=== PATIENT | female | born 1940 | race Caucasian/White ===

== ENCOUNTER → 2024-09-25 | Outpatient (CLI) | payer MEDICARE, BC, SELFPAY ==
[2024-09-25 14:56] LABS: B-Type Natriuretic Peptide 103 pg/mL (0-100)
== END | disposition home or self-care (01) ==
PROVIDERS: PCP Family Medicine; Referring Provider Physician Assistant; Visit Provider Physician Assistant
DX: I50.20 Unspecified systolic (congestive) heart failure (principal)
CPT/HCPCS: 36415; 83880

== ENCOUNTER 2024-09-27 05:32 | Inpatient (IN) | payer MEDICARE, BC, SELFPAY ==
[2024-09-27] VITALS (13 sets, daily range): BP systolic 119–151; BP diastolic 66–93; PULSE 72–111; RESP 17–32; TEMP 36.1–37.2; O2SAT 89–99; BMI 21.4
--- NOTE | 2024-09-27 05:40 | EKG_ITS ---
[facility] Test Date: 2024-09-27 Pat Name: EPI GARCIA Department: Room: - Gender: Female Director Of Annual Giving: : 1940 Requested By: ED Temporary Provider Order Number: [id number] Reading MD: ED Temporary Provider Measurements Intervals Placida Rate: 98 P: MO: QRS: 54 QRSD: 81 T: 89 QT: 336 QTc: 429 Interpretive Statements ATRIAL FIBRILLATION WITH ABERRANT CONDUCTION OR VENTRICULAR PREMATURE COMPLEXES MODERATE ST DEPRESSION [0.05+ mV ST DEPRESSION] No previous ECG available for comparison /store/S0/[id number].pdf
--- NOTE | 2024-09-27 05:45 | XR_ITS ---
Examination: AP chest single view Technique one AP portable upright chest single view Exam date and time: September 27, 2024 at 0623 hrs. Comparison September 24, 2024 1321 hrs. Indications: Shortness of breath this week Findings: Significant left lung atelectasis with shift of the mediastinum trachea and heart to the left Prominent osteopenia Heart does not appear enlarged Impression: Significant left lung atelectasis, consider bronchoscopy follow-up to exclude mucus plugging left mainstem bronchus
[2024-09-27 06:06] LABS: Basophils % (Auto) 0 % (0-2.5); Eosinophils # (Auto) 0.1 Thou/mm3 (0.0-0.5); Eosinophils % (Auto) 1 % (0-10); Immature Granulocytes % (Auto) 1 % (0-0); Immature Granulocytes Auto 0.16 Thou/mm3 (0.00-0.00); Lymphocytes # (Auto) 1.5 Thou/mm3 (1.0-4.8); Lymphocytes % (Auto) 13 % (10-50); Mean Corpuscular HGB Conc 34.9 g/dl (31.0-37.0); Mean Corpuscular Hemoglobin 31.2 pg (25.0-35.0); Mean Corpuscular Volume 89 fL (80-100); Monocytes # (Auto) 1.2 Thou/mm3 (0.0-0.8); Monocytes % (Auto) 11 % (0-12); Neutrophils # (Auto) 8.2 Thou/mm3 (1.8-7.7); Neutrophils % (Auto) 74 % (37-80); Nucleated Red Blood Cell % 0 /100 WBC (0); Platelet Count 307 Thou/mm3 (140-440); RDW Standard Deviation 43.2 fL (36.4-46.3); Red Blood Count 4.81 Miln/mm3 (4.00-5.20); White Blood Count 11.2 Thou/mm3 (3.6-11.0)
--- NOTE | 2024-09-27 06:23 | PD.EDSOB ---
ED SOB =RME/HPI General Chief Complaint: Shortness of Breath/Dyspnea Stated Complaint: SOB Time Seen by Provider: 09/27/24 06:00 Arrival date/time: 09/27/24 05:32 Related Data Home Medications ?Medication ?Instructions ?Recorded ?Confirmed losartan 50 mg tablet 50 mg PO QDAY 02/01/19 09/14/23 methenamine hippurate 1 gram tablet 1 g PO BID 02/01/19 09/14/23 montelukast 10 mg tablet 10 mg PO QDAY 04/03/19 09/14/23 theophylline 300 mg 300 mg PO DAILY 04/03/19 09/14/23 tablet,extended release,12 hr famotidine 20 mg tablet 20 mg PO QDAY 11/12/22 09/14/23 loperamide 2 mg capsule 2 mg PO PRN PRN Diarrhea 11/12/22 09/14/23 mirabegron 50 mg tablet,extended 50 mg PO QDAY 11/12/22 09/14/23 release 24 hr (Myrbetriq) simvastatin 40 mg tablet 40 mg PO QDAY 11/12/22 09/14/23 budesonide 1 mg/2 mL suspension 1 mg inhalation QDAY 09/14/23 09/14/23 for nebulization ipratropium 20 mcg-albuterol 100 2 puff inhalation QID PRN wheezing 09/14/23 09/14/23 mcg/actuation mist for inhalation (Combivent Respimat) metoclopramide HCl 5 mg tablet 5 mg PO BID 09/14/23 09/14/23 mirabegron 50 mg tablet,extended 50 mg PO QDAY 09/14/23 09/14/23 release 24 hr (Myrbetriq) Allergies Allergy/AdvReac Type Severity Reaction Status Date / Time Penicillins Allergy Severe SWELLING, Verified 09/14/23 09:30 RASH Sulfa (Sulfonamide Allergy Intermediate RASH, Verified 09/14/23 09:30 Antibiotics) ITCHING Course Orders Category Date Time Status CT Screening NOW Care 09/27/24 06:39 Active EKG (ED ONLY) *Do not use* NOW Care 09/27/24 05:[address] chest abdomen pelvis w Stat Exams 09/27/24 06:39 Taken EKG (ED Only) Stat Exams 09/27/24 05:40 Draft XR chest 1V portable Stat Exams 09/27/24 05:45 Completed B-Type Natriuretic Peptide Stat Lab 09/27/24 06:00 Completed Blood Culture (Lab) Stat Lab 09/27/24 07:40 Received CBC Stat Lab 09/27/24 06:00 Completed Comprehensive Metabolic Panel Stat Lab 09/27/24 06:00 Completed Lactate (Lactic Acid) Stat Lab 09/27/24 07:45 Completed Lipase Stat Lab 09/27/24 06:00 Completed Troponin I Stat Lab 09/27/24 06:00 Completed Urinalysis Stat Lab 09/27/24 06:39 Ordered Venous Blood Gas Stat Lab 09/27/24 07:45 Completed Vital Signs Vital signs: Vital Signs Temperature 98.5 F 09/27/24 05:40 Pulse Rate 98 09/27/24 05:40 Respiratory Rate 32 H 09/27/24 05:40 Blood Pressure 150/69 H 09/27/24 05:40 Pulse Oximetry (%) 89 L 09/27/24 05:40 Oxygen Delivery Method Room Air 09/27/24 05:40 Discharge Plan Prescriptions/Referrals Prescriptions/Med Rec: No Action losartan 50 mg Tablet 50 mg PO QDAY methenamine hippurate 1 gram Tablet 1 g PO BID theophylline 300 mg Tablet Extended Release 12 Hr 300 mg PO DAILY montelukast 10 mg Tablet 10 mg PO QDAY metoclopramide HCl 5 mg tablet 5 mg PO BID budesonide 1 mg/2 mL Suspension For Nebulization 1 mg INHALATION QDAY Myrbetriq 50 mg tablet extended release 24 hr 50 mg PO QDAY Combivent Respimat 20-100 mcg/actuation mist 2 puff INHALATION QID PRN (Reason: wheezing) loperamide 2 mg Capsule 2 mg PO PRN PRN (Reason: Diarrhea) Rx Instructions: administer after each loose stool until symptoms controlled; do not exceed 8 mg per 24 hrs simvastatin 40 mg tablet 40 mg PO QDAY famotidine 20 mg Tablet 20 mg PO QDAY Myrbetriq 50 mg tablet extended release 24 hr 50 mg PO QDAY Referrals: Jacqueline Moyer MD [Primary Care Provider] - In 1 week Patient/Caregiver Discharge Instructions Print Language: Finnish
--- NOTE | 2024-09-27 06:23 | PD.EDSOB ---
ED SOB =RME/HPI General Chief Complaint: Shortness of Breath/Dyspnea Stated Complaint: SOB Time Seen by Provider: 09/27/24 06:00 Arrival date/time: 09/27/24 05:32 RME / HPI RME / HPI Narrative: Patient 84-year-old who has a history of COPD asthma has been having shortness of breath getting worse over the past 9 days where they contacted their primary care doctor had a run of some steroids Z-Tom over the past 4 days and was slightly getting better than getting worse and today she is even worse and she came in by. The daughter gives a very detailed history talking about her O2 sats coming up and down into the 90s to the 80s but this morning and it was down into the 70s.. She also had a diaphragmatic hernia that was surgically repaired 3 months ago. And she has done relatively well since that time. They noticed some increased cough during the 3-month but over the last 9 days things got worse. There is been no fever there has been no sputum production. They have been using nebulizers at home without any significant relief. Related Data Home Medications ?Medication ?Instructions ?Recorded ?Confirmed losartan 50 mg tablet 50 mg PO QDAY 02/01/19 09/14/23 methenamine hippurate 1 gram tablet 1 g PO BID 02/01/19 09/14/23 montelukast 10 mg tablet 10 mg PO QDAY 04/03/19 09/14/23 theophylline 300 mg 300 mg PO DAILY 04/03/19 09/14/23 tablet,extended release,12 hr famotidine 20 mg tablet 20 mg PO QDAY 11/12/22 09/14/23 loperamide 2 mg capsule 2 mg PO PRN PRN Diarrhea 11/12/22 09/14/23 mirabegron 50 mg tablet,extended 50 mg PO QDAY 11/12/22 09/14/23 release 24 hr (Myrbetriq) simvastatin 40 mg tablet 40 mg PO QDAY 11/12/22 09/14/23 budesonide 1 mg/2 mL suspension 1 mg inhalation QDAY 09/14/23 09/14/23 for nebulization ipratropium 20 mcg-albuterol 100 2 puff inhalation QID PRN wheezing 09/14/23 09/14/23 mcg/actuation mist for inhalation (Combivent Respimat) metoclopramide HCl 5 mg tablet 5 mg PO BID 09/14/23 09/14/23 mirabegron 50 mg tablet,extended 50 mg PO QDAY 09/14/23 09/14/23 release 24 hr (Myrbetriq) Allergies Allergy/AdvReac Type Severity Reaction Status Date / Time Penicillins Allergy Severe SWELLING, Verified 09/14/23 09:30 RASH Sulfa (Sulfonamide Allergy Intermediate RASH, Verified 09/14/23 09:30 Antibiotics) ITCHING Review of Systems Review of Systems Narrative Review of Systems: Constitutional: DENIES; Fevers Eyes: DENIES; Loss of vision Head/Ear/Nose: DENIES; Loss of hearing Throat: DENIES; Dysphagia Cardiovascular: DENIES; Chest pain, dyspnea or syncope Respiratory: SEE HPI +cough, +shortness of breath Gastrointestinal: DENIES; Rectal bleeding or melena. Genitourinary: DENIES; Dysuria (painful or difficult urination) Musculoskeletal: DENIES; Arthralgia (pain in a joint),; Skin: DENIES; Rash Neurological: DENIES; Loss of function or movement Psychiatric: DENIES; recent major life stressor, emotional problem, illicit drug use or abuse Endocrinology: DENIES; Weight change Hematologic/Lymphatic: DENIES; Abnormal bruising Allergic/Immunologic: DENIES; Urticaria (hives) Past Medical History Past Medical History CARDIAC: Positive Hypercholesterolemia and Hypertension RESPIRATORY: Positive Chronic Obstructive Pulmonary Disease (COPD), Asthma, Bronchitis and Pneumonia GASTROINTESTINAL: Positive Gastrointestinal Disorders, Colitis, Irritable Bowel, Hiatal Hernia and Gastroesophageal Reflux Disease GENITOURINARY: Positive Genitourinary Disorders (bladder prolapsed with bladder lift) REPRODUCTIVE: Positive Previous Pregnancies MUSCULOSKELETAL: Positive Musculoskeletal Disorders, Arthritis, Rheumatoid Arthritis, Osteoporosis and Carpal Tunnel Syndrome (bilaterally) ENT: Positive Cataracts OTHER HISTORY: Positive Hospitalization, Shingles, Falls, Chicken Pox and Mumps Family History FAMILY HISTORY: Positive Family Respiratory Disorders, Family Cardiac Disorders, Family Cancer and Family Surgery Surgical History SURGICAL: Positive Hysterectomy; Negative Cardiac Surgery Social History SMOKING STATUS: Never smoker SECOND HAND EXPOSURE: Yes SUBSTANCE USE: does not use ED Exam Narrative Physical exam: Physical Exam: General: The vital signs were reviewed. Patient O2 sat is 9394% on facemask the patient is non-toxic, in no apparent distress and appears healthy with a patent airway, no respiratory distress and has no apparent circulatory problems. Head & Scalp: Normocephalic, atraumatic. Face: Appears normal and is without lesions, deformity. Ears: Left external pinna appears normal. Right external pinna appears normal. Eyes: The sclera is anicteric. No obvious photophobia. The Left and Right Orbit/Lid/Conjunctiva appears normal without swelling, discoloration or injection. Nose: The nose is without deformity, discharge or tenderness; Throat: Appears normal. The mucous membranes are pink and moist without exudates, redness or mass seen. The tongue appears normal. Neck: The neck is supple and no apparent mass or adenopathy. Chest: The left posterior chest has decreased breath sounds and is quite muffled. Right chest you can hear breath sounds. Anteriorly breath sounds are clearly diminished in the lower side of the left thorax. There is no wheezes rhonchi or rales heard. Patient has no pain with respirations. She is a little kyphotic. Cardiovascular: Regular rate and rhythm; No murmurs, rubs, or gallops; Gastrointestinal: The abdomen appears normal. No obvious hernias or mass. The abdomen is soft and benign, non-distended, with no pain, no guarding and no rebound tenderness. Bowel sounds are present and normal sounding. No CVA tenderness. Genitourinary: Back/Spine: Nontender on Paller caution normal inspection Extremities/Musculoskeletal/lymphatic: The bilateral upper and lower extremities are warm. There is no evidence of arterial insufficiency. There is no evidence of venous insufficiency/edema. The patient spontaneously moves bilateral upper and lower extremities with no pain and no limitation of movement. There is no apparent, injury or trauma. Skin: The skin is warm, dry and intact. No rashes. No petechia. No purpura. No abnormal bruising. The color is appropriate with no cyanosis. Mental status/Psychiatric: Mental status is appropriate for age. The patient has no apparent delusions, visual hallucinations, no apparent audible hallucinations. The patient has no apparent suicidal thoughts/ideation and no apparent homicidal thoughts/ideation. Neurological: The patient is awake, alert, interactive, cordial, cooperative and is oriented to name and situation. The patient follows commands and answers historical question with no impairment. There is no visual disturbance apparent. The pupils are equal and reactive bilaterally with normal eye movements and no diplopia The bilateral upper and lower extremities have normal strength, normal range of motion and normal functioning. The gait, station and balance were not tested due to acuity. Course Quality Measures none Orders Category Date Time Status CT Screening NOW Care 09/27/24 06:39 Active EKG (ED ONLY) *Do not use* NOW Care 09/27/24 05:[address] chest abdomen pelvis w Stat Exams 09/27/24 06:39 Completed EKG (ED Only) Stat Exams 09/27/24 05:40 Draft XR chest 1V portable Stat Exams 09/27/24 05:45 Completed B-Type Natriuretic Peptide Stat Lab 09/27/24 06:00 Completed Blood Culture (Lab) Stat Lab 09/27/24 07:40 Received CBC Stat Lab 09/27/24 06:00 Completed Comprehensive Metabolic Panel Stat Lab 09/27/24 06:00 Completed Lactate (Lactic Acid) Stat Lab 09/27/24 07:45 Completed Lipase Stat Lab 09/27/24 06:00 Completed Troponin I Stat Lab 09/27/24 06:00 Completed Urinalysis Stat Lab 09/27/24 06:39 Ordered Venous Blood Gas Stat Lab 09/27/24 07:45 Completed Vital Signs Vital signs: Vital Signs Temperature 98.5 F 09/27/24 05:40 Pulse Rate 98 09/27/24 05:40 Respiratory Rate 32 H 09/27/24 05:40 Blood Pressure 150/69 H 09/27/24 05:40 Pulse Oximetry (%) 89 L 09/27/24 05:40 Oxygen Delivery Method Room Air 09/27/24 05:40 Pulse ox is 89% on room air which is hypoxic. Shortness of Breath / Dyspnea MDM Narrative MDM Narrative:: Patient saw her primary care doctors nurse practitioner this past week and had a chest x-ray done as an outpatient which is in our system which reveals a large left pleural effusion which was not seen a year and a half ago on a chest x-ray at that time. Today's chest x-ray reveals the same left pleural effusion except is actually more extensive. The question is why did she have a new onset left pleural effusion. Is a postoperative issue or is or some other issue going on. Will get a CT of the chest abdomen pelvis to rule out neoplasm and then we will reevaluate her in talk about a thoracentesis and/or admission. Patient had a CT scan of the chest abdomen pelvis reveals a large pleural effusion with the lung partially collapsed but no masses seen. There is a benign lesion in the pancreas per verbal communication with Dr. Medrano the radiologist. The diaphragm appears to be intact with no diaphragmatic hernia seen at this time. Chest x-ray read by myself reveals large left pleural effusion feeling up two thirds of the left thorax. Right lung field appears perfectly clear CMP reveals a sodium 140 potassium 3.6 chloride 104 CO2 25.8 anion gap is 10 BUN 17 creatinine 1.0. Glucose 134 AST ALT are normal lactic acid 1.5. Troponin was negative BNP was 53. The cause of this patient's left pleural effusion is unclear. I called her doctors at [facility] spoke with the resident Dr. Crocker and spoke with the PA on Maria Guadalupe's phone number is [phone] and both them said the surgery that was done in December would not cause a diffusion at this time or to be extremely rare. They recommended proceeding with just the usual workup for a new onset pleural effusion. I then contacted the hospitalist and spoke with the resident and they will admit the patient to work of her pleural effusion. This information was communicated the patient and the daughter who is present in the room. CT chest abdomen pelvis IMPRESSION: Bilateral thyroid nodules Significant left lung atelectasis with poor aeration of the left bronchial airway beyond the left mainstem bronchus, consider bronchoscopy follow-up to exclude mucous plugs in the left bronchial airway Moderate left pleural fluid 14 mm hypodense mass body the pancreas, recommend MRI abdomen pancreas follow-up pre and postcontrast Nonspecific ileus versus enteritis pattern Colonic diverticulosis, no diverticulitis Patient data External records reviewed:: [facility] previous records Clinical information provided by:: patient and family (Daughter- adds to history ) Social determinants that could affect healthcare access:: none Patient has the following chronic illnesses:: COPD asthma How is presenting disease/condition affected by chronic disease/condition?: exacerbated by Evaluation data The following diagnostics were reviewed and interpreted by me:: lab results, radiology exam(s) and EKG tracing(s) (Atrial fibrillation, rate 98, no STEMI) Lab and/or radiology exams considered but not ordered:: None Interpretation Summary: Ordering Physician: Samantha Millan MD Date of Service: 09/27/24 Procedure(s): XR chest 1V portable Accession Number(s): [id number] cc: Maik Spence MD; Samantha Millan MD~ Examination: AP chest single view Technique one AP portable upright chest single view Exam date and time: September 27, 2024 at 0623 hrs. Comparison September 24, 2024 1321 hrs. Indications: Shortness of breath this week Findings: Significant left lung atelectasis with shift of the mediastinum trachea and heart to the left Prominent osteopenia Heart does not appear enlarged Impression: Significant left lung atelectasis, consider bronchoscopy follow-up to exclude mucus plugging left mainstem bronchus Dictated By: Maik Spence MD Signed By: <Electronically signed by Maik Spence MD in OV> 09/27/24 0744 Ordering Physician: João Kidd MD Date of Service: 09/27/24 Procedure(s): CT chest abdomen pelvis w Accession Number(s): [id number] cc: João Kidd MD; Maik Spence MD; Jacqueline Moyer MD~ Examination: CT chest with intravenous contrast CT abdomen with intravenous contrast CT pelvis with intravenous contrast 2-D coronal and sagittal reconstructions Time of exam: September 27, 2024 0719 hours Comparison September 15, 2023 INDICATIONS: Shortness breath chest pain beginning 4 days ago as well as abdominal pain CTDI: vol (mGy) : 6.52 DLP: (mGycm): 463 Technique: Multiple axial images of the chest, abdomen and pelvis with intravenous contrast, 3.0 mm slice thickness. Images obtained post intravenous injection Isovue 370 60 cc. 2-D sagittal and coronal reconstructions. Low dose protocols were performed. One or more of the following dose reduction techniques were used; automated exposure control, adjustment of the mA and/or KV according to patient size, use of iterative reconstruction technique. Findings: Bilateral thyroid nodules, the largest in the right lobe of the thyroid 14 mm No thoracic aortic aneurysm dilatation or dissection Main pulmonary artery segment 26 mm No pulmonary artery emboli Significant left lung atelectasis with very poor aeration of the left bronchial airway beyond the left mainstem bronchus, however no solid tumor noted in the left mediastinum or right mediastinum Moderate left pleural fluid The heart mediastinum trachea are shifted to the left Retrocardiac gastric hernia No focal liver or splenic lesion No gallstones 14 mm hypodense mass in the body the pancreas axial image 140 No adrenal mass No hydronephrosis Heavy abdominal aortic calcification no aneurysmal dilatation No pericecal inflammatory change Fluid distended small bowel loops with wall thickening, for instance axial image 205 although no obstruction Colonic diverticulosis prominent Sigmoid colon no diverticulitis Absent uterus No adnexal mass Urinary bladder intact Severe osteopenia IMPRESSION: Bilateral thyroid nodules Significant left lung atelectasis with poor aeration of the left bronchial airway beyond the left mainstem bronchus, consider bronchoscopy follow-up to exclude mucous plugs in the left bronchial airway Moderate left pleural fluid 14 mm hypodense mass body the pancreas, recommend MRI abdomen pancreas follow-up pre and postcontrast Nonspecific ileus versus enteritis pattern Colonic diverticulosis, no diverticulitis Dictated By: Maik Spence MD Signed By: <Electronically signed by Maik Spence MD in OV> 09/27/24 0940 Medications / Prescriptions Medications or Prescriptions considered but not ordered:: None Medication administrations:: Medication Administration History Acetaminophen (Acetaminophen 325 Mg Tablet) 650 mg PO Q6H PRN PRN Reason: Fever >100.4 Stop: 10/27/24 13:13 Acetaminophen (Acetaminophen 325 Mg Tablet) 650 mg PO Q6H PRN PRN Reason: PAIN SCALE 1-3 (mild Stop: 10/27/24 13:13 Hydrocodone Bitart/Acetaminophen (Hydrocodone/Apap 10/325 Tab) 1 tab PO Q4HR PRN PRN Reason: PAIN SCALE 7-10 (Severe Stop: 10/02/24 13:13 Acetylcysteine (Acetylcysteine Rt Linh 10% 4 Ml Nebu) 3 ml INH Q4HRRT KENNETH Stop: 10/27/24 18:59 Albuterol/Ipratropium (Albuterol/Ipratropium (Duoneb) Rt Linh 3 Ml Nebu) 3 ml INH Q4HRRT KENNETH Stop: 10/27/24 14:59 Last Admin: 09/27/24 15:34 Dose: 3 ml Documented By: LO Albuterol/Ipratropium (Albuterol/Ipratropium (Duoneb) Rt Linh 3 Ml Nebu) 3 ml INH Q6HRRT PRN PRN Reason: SHORTNESS OF BREATH Stop: 10/27/24 18:59 Atorvastatin Calcium (Atorvastatin Calcium 20 Mg Tablet) 40 mg PO HS [facility] Stop: 10/27/24 20:59 Levofloxacin/Dextrose (Levaquin Ivpb) 750 mg in 150 mls @ 100 mls/hr IV QDAY KENNETH; Protocol Stop: 10/05/24 08:59 Losartan Potassium (Losartan Potassium 25 Mg Tablet) 50 mg PO QDAY [facility] Stop: 10/27/24 16:29 Methylprednisolone Sodium Succinate (Methylprednisolone Sod Succ 40 Mg Vial) 40 mg IVP BID [facility] Stop: 10/04/24 20:59 Mineral Oil (Mineral Oil 30 Ml Udc) 30 ml HI QDAY PRN; Protocol PRN Reason: CONSTIPATION Stop: 10/27/24 13:13 Non-Formulary Medication (Mirabegron) 50 mg PO QDAY [facility] Stop: 10/28/24 08:59 Ondansetron HCl (Ondansetron Inj 2 Mg/Ml Inj 2 Ml) 4 mg IV Q6H PRN; Protocol PRN Reason: NAUSEA OR VOMITING Stop: 10/27/24 13:13 Oxycodone/Acetaminophen (Oxycodone/Apap 5/325 Tablet) 1 tab PO Q6H PRN PRN Reason: PAIN SCALE 4-6 (Moderate Stop: 10/02/24 13:13 Pantoprazole Sodium (Pantoprazole Inj 40 Mg Vial) 40 mg IVP QDAY [facility] Stop: 10/28/24 08:59 Sennosides (Senna Tablet) 1 tab PO QDAY PRN; Protocol PRN Reason: constipation Stop: 10/27/24 13:13 Discontinued Medications Levofloxacin/Dextrose (Levaquin Ivpb) 750 mg in 150 mls @ 100 mls/hr IV Q48H KENNETH; Protocol Stop: 10/04/24 13:29 Last Admin: 09/27/24 14:29 Dose: 100 mls/hr Documented By: TM Lidocaine HCl (Lidocaine Inj Pf 1% 30 Ml Vial) Confirm Administered Dose 30 ml .ROUTE .STK-MED ONE Stop: 09/27/24 14:34 Sodium Chloride (Sodium Chloride Rt 10% 15 Ml Nebu) 5 ml INH X1 ONE Stop: 09/27/24 13:15 See above Consultations Consultation(s) initiated? (list below): Yes Consultation #1 (Physician, Specialty, Details): I spoke with resident Dr. Dove working with Dr. Moctezuma. Discussed patients PMHx, HPI, ED course, exam findings, labs, and radiology results. Will come evaluate the patient in the ED. Time: 12:06 Diagnosis Shortness of Breath Differential Diagnosis: acute exacerbation of chronic obstructive airways disease, congestive heart failure, community acquired pneumonia and pulmonary embolism Most likely diagnosis given after review of the tests above:: Pleural effusion on left Acute dyspnea Hypoxemia COPD Admission Indicated Admission indicated?: indicated Admission Request Was there a request for admission?: Yes Admission Attestation Admission request attestation: Discussed case with [] from Hospitalist service regarding admission. Discussed patients ED course, exam findings, labs, and radiology results. The Hospitalist [agrees,declines] to accept the patient for admission. 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
[2024-09-27 06:28] LABS: Alanine Aminotransferase 22 U/L (10-49); Albumin, Serum 3.9 gm/dL (3.4-4.8); Albumin/Globulin Ratio 1.8 (1.2-2.2); Alkaline Phosphatase 63 U/L (46-116); Anion Gap 10 (7-16); Aspartate Amino Transferase 18 U/L (0-34); BUN/Creatinine Ratio 17 Ratio (12-20); Bilirubin,Total 0.9 mg/dL (0.3-1.2); Blood Urea Nitrogen 17 mg/dL (9-23); Calcium 9.3 mg/dL (8.3-10.6); Calcium (Corrected) 9.4 mg/dL (8.5-10.1); Carbon Dioxide 25.8 mMol/L (20.0-31.0); Chloride 104 mMol/L (98-107); Estimated Creatinine Clearance 32.5 mL/min (>60); Globulin 2.2 gm/dL (2.3-3.5); Glucose 134 mg/dL (74-106); Lipase 25 U/L (12-53); Osmolality,Calculated 282 (275-295); Potassium 3.6 mMol/L (3.4-5.1); Sodium 140 mMol/L (136-145); Total Protein 6.1 gm/dL (5.7-8.2); Troponin I < 0.020 ng/mL (0.0-0.045); eGFR 55 See Note
--- NOTE | 2024-09-27 06:39 | XR_ITS ---
Examination: CT chest with intravenous contrast CT abdomen with intravenous contrast CT pelvis with intravenous contrast 2-D coronal and sagittal reconstructions Time of exam: September 27, 2024 0719 hours Comparison September 15, 2023 INDICATIONS: Shortness breath chest pain beginning 4 days ago as well as abdominal pain CTDI: vol (mGy) : 6.52 DLP: (mGycm): 463 Technique: Multiple axial images of the chest, abdomen and pelvis with intravenous contrast, 3.0 mm slice thickness. Images obtained post intravenous injection Isovue 370 60 cc. 2-D sagittal and coronal reconstructions. Low dose protocols were performed. One or more of the following dose reduction techniques were used; automated exposure control, adjustment of the mA and/or KV according to patient size, use of iterative reconstruction technique. Findings: Bilateral thyroid nodules, the largest in the right lobe of the thyroid 14 mm No thoracic aortic aneurysm dilatation or dissection Main pulmonary artery segment 26 mm No pulmonary artery emboli Significant left lung atelectasis with very poor aeration of the left bronchial airway beyond the left mainstem bronchus, however no solid tumor noted in the left mediastinum or right mediastinum Moderate left pleural fluid The heart mediastinum trachea are shifted to the left Retrocardiac gastric hernia No focal liver or splenic lesion No gallstones 14 mm hypodense mass in the body the pancreas axial image 140 No adrenal mass No hydronephrosis Heavy abdominal aortic calcification no aneurysmal dilatation No pericecal inflammatory change Fluid distended small bowel loops with wall thickening, for instance axial image 205 although no obstruction Colonic diverticulosis prominent Sigmoid colon no diverticulitis Absent uterus No adnexal mass Urinary bladder intact Severe osteopenia IMPRESSION: Bilateral thyroid nodules Significant left lung atelectasis with poor aeration of the left bronchial airway beyond the left mainstem bronchus, consider bronchoscopy follow-up to exclude mucous plugs in the left bronchial airway Moderate left pleural fluid 14 mm hypodense mass body the pancreas, recommend MRI abdomen pancreas follow-up pre and postcontrast Nonspecific ileus versus enteritis pattern Colonic diverticulosis, no diverticulitis
--- NOTE | 2024-09-27 07:16 | PC.NURSE ---
PT TO CT UPON ASSUMPTION OF CARE.
[2024-09-27 07:21] LABS: B-Type Natriuretic Peptide 53 pg/mL (0-100)
[2024-09-27 08:02] LABS: Base Excess, Venous 6 (-3-3); Lactate (Lactic Acid) 1.5 mMol/L (0.4-2.0); O2 Saturation, Venous 40 % (96-97); PCO2, Venous 44 mmHg (36-56); PO2, Venous 23 mmHg (15-58); pH, Venous 7.45 (7.33-7.66)
--- NOTE | 2024-09-27 10:13 | PC.NURSE ---
connected pts g-tube to suction at doctors verbal request
--- NOTE | 2024-09-27 13:31 | PD.RESPRO ---
Documentation for date of: 09/27/24 Subjective Subjective Interval history: This is an 88-year-old female with PMHx of asthma, COPD with recurrent admission for exacerbation, HLD, HTN, presenting with worsening shortness of breath, found hypoxemic at home, desatting to 70. Recently, patient was seen by PCP who prescribed STEROIDS and Z-DARYN. Patient has completed her course of Z-DARYN and STEROID, however now having worsening symptoms. Patient was seen by PCP who recommended hospital admission. In the last 2 months, patient completed 2 rounds of STEROIDS and ANTIBIOTICS for similar symptoms. Of note, she also had recurrent admission for COPD or asthma exacerbation. Patient does not use home oxygen. However, recently given temporary oxygen supply which she has been using without relief of symptoms. Unable to walk more than 10 ft without shortness of breath. Patient also endorsing productive cough, yellow/[place] sputum. Denies headaches, fevers, chills, falls, chest pain, palpitations, racing sensation, abdominal pain, N/V/D/C, or urinary symptoms. ED COURSE: Afebrile, satting 89% on 6 L, RR 32, HR 98, BP 150/69 VBG pH 7.45, pCO2 44, pO2 23 WBC 11.2, otherwise CBC normal. CMP no significant abnormalities. Troponin negative, BNP 103 EKG atrial fibrillation with VPC CXR and CT pertinent for significant lung atelectasis, possible mucous plug, moderate left pleural effusion CT also showed left mediastinal shift, Retrocardiac gastric hernia, bilateral thyroid nodules (largest 14 mm in right lobe), 14 mm hypodense mass in body of pancrease, and colonic diverticulosis without diverticulitis. Hospitalist team was consulted for this patient. We will admit for acute hypoxemic respiratory failure likely 2/2 mucous plug 2/2 pneumonia versus asthma/COPD exacerbation. Finance Executive team was also consulted for this patient, to undergo bronchoscopy. Appreciate recommendations. PMHx: COPD, asthma, HLD, HTN PSHx: Hiatal hernia repair MEDS: MONTELUKAST, THEOPHYLLINE, COMBIVENT, BUDESONIDE, LOSARTAN, SIMVASTATIN, METHANAMINE-HIPPURE, MIRABEGRON, CYCLOBENZAPRINE, LOPERAMIDE, ALLERTEK. ALLERGIES: AMOXICILLIN (urticaria) and SULFA DRUGS (urticaria) SH: Never smoker, no alcohol or drug use Exam Vital Signs Temp Pulse Resp BP Pulse Ox O2 Del Method O2 Flow Rate 98.9 F 89 17 145/81 H 94 L Oxy Mask 7 09/27/24 12:39 09/27/24 12:39 09/27/24 12:39 09/27/24 12:39 09/27/24 12:39 09/27/24 12:39 09/27/24 12:39 Narrative Exam GENERAL: Ill-appearing elderly female, on 7 L cannula, tachypneic, but no apparent distress HEENT: NCAT.?MANDO. Oral mucosa is moist. Patent Nares NECK: Supple, nontender, no thyromegaly, no meningismus, no JVD, no step offs CHEST: Symmetrical, atraumatic, and with equal expansion, Nontender on palpation no deformity and no crepitus. CARDIOVASCULAR: RRR, no m/g/r LUNGS: Decreased breath sound bilaterally, worse on the left. No wheezing, rales or rhonchi appreciated on exam. Symmetrical chest rise. No intercostal subcostal retraction. ABDOMEN: Soft, flat, nontender. No guarding/rebound tenderness/masses. +BS EXTREMITIES: Nontender.? No edema/cyanosis.?Moves all 4 extremities well, with full ROM and good CSM. SKIN: Warm and dry, no jaundice/rashes. MSK: No lumbar or midline, no CVA, no paraspinal muscle spasm or tenderness. NEURO: MCLEAN x4, CN II-XII grossly intact.?No focal neurologic deficits. PSYCHIATRIC: Normal mood and affect, cooperative, no SI or HI or hallucinations. Objective Labs 09/27/24 06:00 09/27/24 06:00 Labs: Laboratory Results - last 24 hr 09/27/24 09/27/24 06:00 07:45 WBC 11.2 H RBC 4.81 Hgb 15.0 Hct 43.0 MCV 89 MCH 31.2 MCHC 34.9 RDW Std Deviation 43.2 Plt Count 307 Neut % (Auto) 74 Lymph % (Auto) 13 [place] % (Auto) 11 Eos % (Auto) 1 Baso % (Auto) 0 Neut # (Auto) 8.2 H Lymph # (Auto) 1.5 [place] # (Auto) 1.2 H Eos # (Auto) 0.1 Baso # (Auto) 0.0 Immature Gran # (Auto) 0.16 H Absolute Nucleated RBC 0.00 Immature Gran % 1 H Nucleated RBC % 0 VBG pH 7.45 VBG pCO2 44 VBG pO2 23 VBG O2 Sat (Giulia) 40 L VBG Base Excess 6 H Sodium 140 Potassium 3.6 Chloride 104 Carbon Dioxide 25.8 Anion Gap 10 BUN 17 Creatinine 1.0 Estim Creat Clear Calc 32.5 L eGFR 55 L BUN/Creatinine Ratio 17 Glucose 134 H Calculated Osmolality 282 Lactic Acid 1.5 Calcium 9.3 Corrected Calcium 9.4 Total Bilirubin 0.9 AST 18 ALT 22 Alkaline Phosphatase 63 Troponin I < 0.020 B-Natriuretic Peptide 53 Total Protein 6.1 Albumin 3.9 Globulin 2.2 L Albumin/Globulin Ratio 1.8 Lipase 25 ABG Interpretation ABG results: 09/27/24 07:45 VBG pH 7.45 VBG pCO2 44 VBG pO2 23 VBG Base Excess 6 H Quality Measures Quality Measures none Assessment & Plan Assessment Current Active Medications: Generic Name Dose Route Start Last Admin Trade Name Freq PRN Reason Stop Dose Admin Acetaminophen 650 mg 09/27/24 13:14 Acetaminophen 325 Mg Tablet PO 10/27/24 13:13 Q6H PRN Fever >100.4 Acetaminophen 650 mg 09/27/24 13:14 Acetaminophen 325 Mg Tablet PO 10/27/24 13:13 Q6H PRN PAIN SCALE 1-3 (mild Hydrocodone Bitart/Acetaminophen 1 tab 09/27/24 13:14 Hydrocodone/Apap 10/325 Tab PO 10/02/24 13:13 Q4HR PRN PAIN SCALE 7-10 (Severe Albuterol/Ipratropium 3 ml 09/27/24 15:00 Albuterol/Ipratropium (Duoneb) Rt Linh 3 Ml Nebu INH 10/27/24 14:59 Q4HRRT KENNETH Albuterol/Ipratropium 3 ml 09/27/24 13:14 Albuterol/Ipratropium (Duoneb) Rt Linh 3 Ml Nebu INH 10/27/24 18:59 Q6HRRT PRN SHORTNESS OF BREATH Levofloxacin/Dextrose 750 mg in 150 mls @ 100 mls/hr 09/27/24 13:30 Levaquin Ivpb IV 10/04/24 13:29 QDAY KENNETH Methylprednisolone Sodium Succinate 40 mg 09/27/24 21:00 Methylprednisolone Sod Succ 40 Mg Vial IVP 10/04/24 20:59 BID KENNETH Mineral Oil 30 ml 09/27/24 13:14 Mineral Oil 30 Ml Udc ND 10/27/24 13:13 QDAY PRN CONSTIPATION Protocol Ondansetron HCl 4 mg 09/27/24 13:14 Ondansetron Inj 2 Mg/Ml Inj 2 Ml IV 10/27/24 13:13 Q6H PRN NAUSEA OR VOMITING Protocol Oxycodone/Acetaminophen 1 tab 09/27/24 13:14 Oxycodone/Apap 5/325 Tablet PO 10/02/24 13:13 Q6H PRN PAIN SCALE 4-6 (Moderate Pantoprazole Sodium 40 mg 09/28/24 09:00 Pantoprazole Inj 40 Mg Vial IVP 10/28/24 08:59 QDAY KENNETH Sennosides 1 tab 09/27/24 13:14 Senna Tablet PO 10/27/24 13:13 QDAY PRN constipation Protocol Plan This is an 84-year-old female admitted for acute hypoxemic respiratory failure 2/2 mucous plug 2/2 pneumonia, COPD with asthma exacerbation. Past medical history includes COPD, asthma, HLD, HTN. Recently failed ANTIBIOTICS and STEROIDS outpatient. Has been desatting in the 70s at home. Finance Executive team consulted for pending bronchoscopy. Acute hypoxemic respiratory failure 2/2 MRI abdomen, pancreatic mass TSH for thyroid nodule
--- NOTE | 2024-09-27 13:51 | XR_ITS ---
Examination: Ultrasound right hemithorax Ultrasound left hemithorax Exam date and time: September 27, 2024 1443 hours INDICATIONS: Difficulty breathing this week pleural fluid on CT chest study today Technique and findings: Grayscale sonographic images hemithoraces Small bilateral pleural effusions IMPRESSION: Small bilateral pleural effusions
[2024-09-27] MEDS: LEVOFLOXACIN/D5W 750MG IVPB 750 MG/150 ML BAG 100 MG IV (14:29)
--- NOTE | 2024-09-27 14:51 | PC.CC ---
Patient is an 84 year-old female who presents to the hospital for COPD Exacerbation. Lacy SOLER made [id number] contact with patient. ASW introduced self, role, and reason for visit. Patient appeared alert and oriented to self, location, and situation. At bedside was patient's daughter, Vanesa Coronel who patient provided consent to remaining in the room during assessment and answering some question. Patient was pleasant and engaged in initial assessment. Patient confirmed information on demographics and lives alone. Patient is able to ambulate independently and completes her own ADLs without any assistance. Patient has been using oxygen since presenting to the hospital; however, reports she does not use oxygen at home. Patient receives primary care with Dr. Moyer and uses [facility] for any prescription medications. Patient named both her daughter, Vanesa and her son, Mario Coronel as her Next of Kin. Upon discharge patient plans to return home. creative services specialist to follow-up with any discharge needs.
[2024-09-27 15:29] LABS: Thyroid Stimulating Hormone 2.34 uIU/mL (0.55-4.78)
[2024-09-27] MEDS: ALBUTEROL/IPRATROPIUM (Duoneb) RT SOL 3 ML NEBU INH ×3 (15:34→22:19)
--- NOTE | 2024-09-27 16:01 | ESHP_ITS ---
Documentation for date of: 09/27/24 [facility] History of Present Illness History of present illness: This is an 88-year-old female with PMHx of asthma, COPD with recurrent admission for exacerbation, HLD, HTN, presenting with worsening shortness of breath, found hypoxemic at home, desatting to 70. Recently, patient was seen by PCP who prescribed STEROIDS and Z-DARYN. Patient has completed her course of Z-DARYN and STEROID, however now having worsening symptoms. Patient was seen by PCP who recommended hospital admission. In the last 2 months, patient completed 2 rounds of STEROIDS and ANTIBIOTICS for similar symptoms. Of note, she also had recurrent admission for COPD or asthma exacerbation. Patient does not use home oxygen. However, recently given temporary oxygen supply which she has been using without relief of symptoms. Unable to walk more than 10 ft without shortness of breath. Patient also endorsing productive cough, yellow/[place] sputum. Denies headaches, fevers, chills, falls, chest pain, palpitations, racing sensation, abdominal pain, N/V/D/C, or urinary symptoms. ED COURSE: Afebrile, satting 89% on 6 L, RR 32, HR 98, BP 150/69 VBG pH 7.45, pCO2 44, pO2 23 WBC 11.2, otherwise CBC normal. CMP no significant abnormalities. Troponin negative, BNP 103 EKG atrial fibrillation with VPC CXR and CT pertinent for significant lung atelectasis, possible mucous plug, moderate left pleural effusion CT also showed left mediastinal shift, Retrocardiac gastric hernia, bilateral thyroid nodules (largest 14 mm in right lobe), 14 mm hypodense mass in body of pancrease, and colonic diverticulosis without diverticulitis. Hospitalist team was consulted for this patient. We will admit for acute hypoxemic respiratory failure likely 2/2 mucous plug 2/2 pneumonia versus asthma/COPD exacerbation. Cra team was also consulted for this patient, to undergo bronchoscopy. Appreciate recommendations. PMHx: COPD, asthma, HLD, HTN PSHx: Hiatal hernia repair MEDS: MONTELUKAST, THEOPHYLLINE, COMBIVENT, BUDESONIDE, LOSARTAN, SIMVASTATIN, METHANAMINE-HIPPURE, MIRABEGRON, CYCLOBENZAPRINE, LOPERAMIDE, ALLERTEK. ALLERGIES: AMOXICILLIN (urticaria) and SULFA DRUGS (urticaria) SH: Never smoker, no alcohol or drug use Exam Vital Signs Temp Pulse Resp BP Pulse Ox O2 Del Method O2 Flow Rate 98.9 F 84 18 145/81 H 99 Oxy Mask 4 09/27/24 12:39 09/27/24 15:38 09/27/24 15:38 09/27/24 12:39 09/27/24 15:38 09/27/24 12:39 09/27/24 15:38 Narrative Exam GENERAL: Ill-appearing elderly female, on 7 L cannula, tachypneic, but no apparent distress HEENT: NCAT.?MANDO. Oral mucosa is moist. Patent Nares NECK: Supple, nontender, no thyromegaly, no meningismus, no JVD, no step offs CHEST: Symmetrical, atraumatic, and with equal expansion, Nontender on palpation no deformity and no crepitus. CARDIOVASCULAR: RRR, no m/g/r LUNGS: Decreased breath sound bilaterally, worse on the left. No wheezing, rales or rhonchi appreciated on exam. Symmetrical chest rise. No intercostal subcostal retraction. ABDOMEN: Soft, flat, nontender. No guarding/rebound tenderness/masses. +BS EXTREMITIES: Nontender.? No edema/cyanosis.?Moves all 4 extremities well, with full ROM and good CSM. SKIN: Warm and dry, no jaundice/rashes. MSK: No lumbar or midline, no CVA, no paraspinal muscle spasm or tenderness. NEURO: MCLEAN x4, CN II-XII grossly intact.?No focal neurologic deficits. PSYCHIATRIC: Normal mood and affect, cooperative, no SI or HI or hallucinations. Results: Labs 09/28/24 04:54 09/28/24 04:54 Labs: Short CBC 09/27/24 Range/Units 06:00 WBC 11.2 H (3.6-11.0) Thou/mm3 Hgb 15.0 (12.0-16.0) g/dL Hct 43.0 (36.0-46.0) % Plt Count 307 (140-440) Thou/mm3 BMP 09/27/24 06:00 Sodium 140 Potassium 3.6 Chloride 104 Carbon Dioxide 25.8 BUN 17 Creatinine 1.0 Glucose 134 H Calcium 9.3 Cardiac Enzymes 09/27/24 Range/Units 06:00 Troponin I < 0.020 (0.0-0.045) ng/mL Liver Function 09/27/24 Range/Units 06:00 Total Bilirubin 0.9 (0.3-1.2) mg/dL AST 18 (0-34) U/L ALT 22 (10-49) U/L Alkaline Phosphatase 63 (46-116) U/L Albumin 3.9 (3.4-4.8) gm/dL ABG Interpretation ABG results: 09/27/24 07:45 VBG pH 7.45 VBG pCO2 44 VBG pO2 23 VBG Base Excess 6 H Quality Measures Quality Measures none Advance care planning discussed with:: patient Medications Home Medications and Allergies Home Medications ?Medication ?Instructions ?Recorded ?Confirmed ?Type losartan 50 mg tablet 50 mg PO QDAY 02/01/19 09/14/23 History methenamine hippurate 1 gram tablet 1 g PO BID 02/01/19 09/14/23 History montelukast 10 mg tablet 10 mg PO QDAY 04/03/19 09/14/23 History theophylline 300 mg 300 mg PO DAILY 04/03/19 09/14/23 History tablet,extended release,12 hr famotidine 20 mg tablet 20 mg PO QDAY 11/12/22 09/14/23 History loperamide 2 mg capsule 2 mg PO PRN PRN Diarrhea 11/12/22 09/14/23 History mirabegron 50 mg tablet,extended 50 mg PO QDAY 11/12/22 09/14/23 History release 24 hr (Myrbetriq) simvastatin 40 mg tablet 40 mg PO QDAY 11/12/22 09/14/23 History budesonide 1 mg/2 mL suspension 1 mg inhalation QDAY 09/14/23 09/14/23 History for nebulization ipratropium 20 mcg-albuterol 100 2 puff inhalation QID PRN wheezing 09/14/23 09/14/23 History mcg/actuation mist for inhalation (Combivent Respimat) metoclopramide HCl 5 mg tablet 5 mg PO BID 09/14/23 09/14/23 History mirabegron 50 mg tablet,extended 50 mg PO QDAY 09/14/23 09/14/23 History release 24 hr (Myrbetriq) Allergies Allergy/AdvReac Type Severity Reaction Status Date / Time Penicillins Allergy Severe SWELLING, Verified 09/14/23 09:30 RASH Sulfa (Sulfonamide Allergy Intermediate RASH, Verified 09/14/23 09:30 Antibiotics) ITCHING Visit Medications Acetaminophen (Acetaminophen 325 Mg Tablet) 650 mg PO Q6H PRN PRN Reason: Fever >100.4 Stop: 10/27/24 13:13 Acetaminophen (Acetaminophen 325 Mg Tablet) 650 mg PO Q6H PRN PRN Reason: PAIN SCALE 1-3 (mild Stop: 10/27/24 13:13 Hydrocodone Bitart/Acetaminophen (Hydrocodone/Apap 10/325 Tab) 1 tab PO Q4HR PRN PRN Reason: PAIN SCALE 7-10 (Severe Stop: 10/02/24 13:13 Albuterol/Ipratropium (Albuterol/Ipratropium (Duoneb) Rt Linh 3 Ml Nebu) 3 ml INH Q4HRRT KENNETH Stop: 10/27/24 14:59 Last Admin: 09/27/24 15:34 Dose: 3 ml Albuterol/Ipratropium (Albuterol/Ipratropium (Duoneb) Rt Linh 3 Ml Nebu) 3 ml INH Q6HRRT PRN PRN Reason: SHORTNESS OF BREATH Stop: 10/27/24 18:59 Levofloxacin/Dextrose (Levaquin Ivpb) 750 mg in 150 mls @ 100 mls/hr IV Q48H KENNETH; Protocol Stop: 10/04/24 13:29 Last Admin: 09/27/24 14:29 Dose: 100 mls/hr Methylprednisolone Sodium Succinate (Methylprednisolone Sod Succ 40 Mg Vial) 40 mg IVP BID [facility] Stop: 10/04/24 20:59 Mineral Oil (Mineral Oil 30 Ml Udc) 30 ml [place] QDAY PRN; Protocol PRN Reason: CONSTIPATION Stop: 10/27/24 13:13 Ondansetron HCl (Ondansetron Inj 2 Mg/Ml Inj 2 Ml) 4 mg IV Q6H PRN; Protocol PRN Reason: NAUSEA OR VOMITING Stop: 10/27/24 13:13 Oxycodone/Acetaminophen (Oxycodone/Apap 5/325 Tablet) 1 tab PO Q6H PRN PRN Reason: PAIN SCALE 4-6 (Moderate Stop: 10/02/24 13:13 Pantoprazole Sodium (Pantoprazole Inj 40 Mg Vial) 40 mg IVP QDAY [facility] Stop: 10/28/24 08:59 Sennosides (Senna Tablet) 1 tab PO QDAY PRN; Protocol PRN Reason: constipation Stop: 10/27/24 13:13 Discontinued Medications Sodium Chloride (Sodium Chloride Rt 10% 15 Ml Nebu) 5 ml INH X1 ONE Stop: 09/27/24 13:15 Assessment & Plan Plan In summary: This is an 84-year-old female admitted for acute hypoxemic respiratory failure 2/2 mucous plug 2/2 pneumonia, COPD with asthma exacerbation. Past medical history includes COPD, asthma, HLD, HTN. Recently failed ANTIBIOTICS and STEROIDS outpatient. Has been desatting in the 70s at home. Manager Services team consulted for possible bronchoscopy. Appreciate recommendation from pulmonology. Acute hypoxemic respiratory failure 2/2: Large, left-sided pleural effusion Left-sided atelectasis Pneumonia, community VS community-acquired COPD exacerbation VS asthma exacerbation Recently completed a course of STEROID and Z-DARYN for upper respiratory infection, presenting with worsening shortness of breath, desatting in 70s, not relieved by home oxygen which patient was prescribed temporarily. In ED, afebrile, WBC 11.2, found desatting and requiring 70 L of oxygen. CXR large left pleural effusion, significant left-sided atelectasis, mucous plug, which was also redemonstrated on CT in addition to left mediastinal STEROIDS. ? Telemetry, oxygen as needed ? Started LEVAQUIN 750 mg daily (09/27 to [present]) ? Started METHYLPREDNISOLONE 40 mg BID (09/27 to [present]) ? Started DuoNebs Q6H PRN and Q4H KENNETH ? Started MUCOMYST Q4H ? Completed pleural drainage for small bilateral pleural effusion ? Plan bronchoscopy with normal neurology ? Pending cultures: Urine and blood ? Pending cocci titer ? Pending pleural fluid cytology and culture HTN, HLD ? Resumed home LOSARTAN 50 mg daily ? Resumed home SIMVASTATIN 40 mg daily Hyperactive bladder ? Resumed home MIRABEGRON 50 mg daily Chronic shoulder and pain ? Pain control ? Holding home CYCLOBENZAPRINE 5 mg HS Thyroid nodules CT showed bilateral thyroid nodules, largest in right lobe 14 mm TSH 2.34 normal. No symptoms of thyroid abnormalities. ? No indication for intervention at this time. ? Follow-up outpatient with primary care provider Pancreatic mass CT showed 14 mm hypodense mass in the body the pancreas. No complaint of abdominal pain ? Pending MRI abdomen ? Pending CEA, CA 19-9, CA125 Health maintenance Diet: Regular diet GI prophylaxis: PROTONIX DVT prophylaxis: SCDs Antibiotics: LEVAQUIN CODE STATUS: Full code Disposition: Ending symptoms improving, pulmonology recommendations Patient case was discussed with attending, Pj Moctezuma MD and senior residents Dr. Greenwood and Dr. Dove. Shaista Gamino DO PGYI Attending Provider Attestation/Addendum I reviewed labs, imaging, EKG, home medications and prior available records. Face to face evaluation was performed by me. I have personally examined the patient and discussed assessment and plan with the IM team. I reviewed the resident note and agree with the plan with exceptions as below. Acute hypoxic respiratory failure Left sided pleural effusion Left lower lobe pneumonia Atelectasis of left lung Pancreatic mass Thyroid nodules Continue oxygen as needed IR guided pleurocentesis. Send fluid for culture and cytology Discussed with pooling operator: Will plan for bronchoscopy Ordered abdominal MRI to investigate the pancreatic mass. Send the tumor markers Order TSH Start IV antibiotics CT scan findings were discussed with the patient/family
[2024-09-27 16:48] LABS: Carcinoembryonic Antigen 2.8 ng/mL (0.0-5.0)
--- NOTE | 2024-09-27 18:09 | PC.NURSE ---
Pt transferred up stairs on tele by this RN, staff at bedside for transfer of care. No incident during transfer of care.
[2024-09-27] MEDS: ACETYLCYSTEINE RT SOL 10% 4 ML NEBU 3 ML INH ×2 (18:30→22:19)
[2024-09-27] MEDS: ATORVASTATIN CALCIUM 20 MG TABLET 40 MG PO (20:51)
--- NOTE | 2024-09-27 22:43 | PC.RT ---
Pt educated on Acapella PEP device, pt tolerated very well,left bedside with pt.
--- NOTE | 2024-09-27 22:44 | PC.RT ---
Sputum sample collected and sent to lab
[2024-09-28] VITALS (14 sets, daily range): BP systolic 110–154; BP diastolic 55–85; PULSE 77–108; RESP 20–27; TEMP 36.2–36.8; O2SAT 90–99; BMI 21.6
[2024-09-28] MEDS: ALBUTEROL/IPRATROPIUM (Duoneb) RT SOL 3 ML NEBU INH ×6 (02:43→22:59)
[2024-09-28] MEDS: ACETYLCYSTEINE RT SOL 10% 4 ML NEBU 3 ML INH ×4 (02:43→15:28)
[2024-09-28 05:48] LABS: Basophils % (Auto) 0 % (0-2.5); Eosinophils % (Auto) 0 % (0-10); Hematocrit 45.1 % (36.0-46.0); Hemoglobin 15.2 g/dL (12.0-16.0); Immature Granulocytes % (Auto) 1 % (0-0); Immature Granulocytes Auto 0.11 Thou/mm3 (0.00-0.00); Lymphocytes # (Auto) 0.2 Thou/mm3 (1.0-4.8); Lymphocytes % (Auto) 3 % (10-50); Mean Corpuscular HGB Conc 33.7 g/dl (31.0-37.0); Mean Corpuscular Hemoglobin 30.6 pg (25.0-35.0); Mean Corpuscular Volume 91 fL (80-100); Monocytes # (Auto) 0.1 Thou/mm3 (0.0-0.8); Monocytes % (Auto) 1 % (0-12); Neutrophils # (Auto) 8.6 Thou/mm3 (1.8-7.7); Neutrophils % (Auto) 95 % (37-80); Nucleated Red Blood Cell % 0 /100 WBC (0); Platelet Count 314 Thou/mm3 (140-440); RDW Standard Deviation 44.7 fL (36.4-46.3); Red Blood Count 4.96 Miln/mm3 (4.00-5.20)
[2024-09-28 06:03] LABS: Prothrombin Time 11.3 Seconds (9.0-12.2)
[2024-09-28 06:30] LABS: Alanine Aminotransferase 16 U/L (10-49); Albumin/Globulin Ratio 1.8 (1.2-2.2); Alkaline Phosphatase 66 U/L (46-116); Anion Gap 13 (7-16); Aspartate Amino Transferase 12 U/L (0-34); BUN/Creatinine Ratio 18 Ratio (12-20); Bilirubin,Total 0.9 mg/dL (0.3-1.2); Blood Urea Nitrogen 20 mg/dL (9-23); Calcium 8.7 mg/dL (8.3-10.6); Calcium (Corrected) 8.7 mg/dL (8.5-10.1); Carbon Dioxide 20.5 mMol/L (20.0-31.0); Chloride 104 mMol/L (98-107); Creatinine (Component) 1.1 mg/dL (0.6-1.3); Estimated Creatinine Clearance 29.6 mL/min (>60); Globulin 2.2 gm/dL (2.3-3.5); Glucose 170 mg/dL (74-106); LDH (Lactate Dehydrogenase) 213 U/L (120-246); Magnesium 2.4 mg/dL (1.6-2.6); Osmolality,Calculated 280 (275-295); Phosphorous 5.1 mg/dL (2.4-5.1); Potassium 4.4 mMol/L (3.4-5.1); Sodium 137 mMol/L (136-145); Total Protein 6.2 gm/dL (5.7-8.2); eGFR 49 See Note
--- NOTE | 2024-09-28 09:01 | XR_ITS ---
Examination: AP chest single view Technique one AP portable sitting chest single view Exam date and time: 04/28/2024 0924 hours Comparison September 27, 2024 FINDINGS: There remains prominent left lung atelectasis, shift of the trachea heart and mediastinum to the left Right lung clear Prominent osteopenia IMPRESSION: There remains significant left lung atelectasis
[2024-09-28] MEDS: LEVOFLOXACIN/D5W 750MG IVPB 750 MG/150 ML BAG 100 MG IV (09:27)
[2024-09-28] MEDS: PANTOPRAZOLE INJ 40 MG VIAL IVP (09:27)
[2024-09-28] MEDS: LOSARTAN POTASSIUM 25 MG TABLET 50 MG PO (09:27)
[2024-09-28 09:42] LABS: Glucose Estimated Average 131 mg/dL (80-131); Hemoglobin A1C 6.2 % Hgb (4.8-6.0)
[2024-09-28 11:04] LABS: Lactate (Lactic Acid) 1.9 mMol/L (0.4-2.0)
--- NOTE | 2024-09-28 11:17 | PD.RESPRO ---
Documentation for date of: 09/28/24 Subjective Subjective Interval history: Patient was seen and examined bedside. Denies any new complaints. Dr. Amador was consulted and patient was shifted to ICU for bronchoscopy and underwent successful removal of mucous plug and shifted back to the floors for further management. Dr. Eli was consulted further mass in the pancreas. Exam Vital Signs Temp Pulse Resp BP Pulse Ox O2 Del Method O2 Flow Rate 98.1 F 102 H 18 123/85 H 93 L Nasal Cannula 4 09/28/24 08:00 09/28/24 11:08 09/28/24 11:08 09/28/24 09:27 09/28/24 11:08 09/28/24 08:00 09/28/24 11:08 Narrative Exam General: Awake. Frail. On oxygen through nasal cannula. HEENT: Normocephalic, atraumatic, mucous membranes moist. Heart: Regular rate and rhythm, no murmurs. Lungs: Bilateral decreased breath sounds are noted. Abdomen: Soft, nondistended, nontender, positive bowel sounds. ?No guarding or rebound tenderness. Neurologic: Alert and oriented x3, no gross neurological deficit, and patient able to move all 4 extremities. Extremities: No edema. Skin: No rash or ecchymoses. Objective Labs 09/29/24 04:40 09/29/24 04:40 Labs: Laboratory Results - last 24 hr 09/27/24 09/27/24 09/28/24 06:00 14:28 04:54 WBC 9.0 RBC 4.96 Hgb 15.2 Hct 45.1 MCV 91 MCH 30.6 MCHC 33.7 RDW Std Deviation 44.7 Plt Count 314 Neut % (Auto) 95 H Lymph % (Auto) 3 L [place] % (Auto) 1 Eos % (Auto) 0 Baso % (Auto) 0 Neut # (Auto) 8.6 H Lymph # (Auto) 0.2 L [place] # (Auto) 0.1 Eos # (Auto) 0.0 Baso # (Auto) 0.0 Immature Gran # (Auto) 0.11 H Absolute Nucleated RBC 0.00 Immature Gran % 1 H Nucleated RBC % 0 PT 11.3 INR 1.0 Sodium 137 Potassium 4.4 D Chloride 104 Carbon Dioxide 20.5 Anion Gap 13 BUN 20 Creatinine 1.1 Estim Creat Clear Calc 29.6 L eGFR 49 L BUN/Creatinine Ratio [address] Glu mg/dL 131 Hemoglobin A1c 6.2 H Calculated Osmolality 280 Lactic Acid Calcium 8.7 Corrected Calcium 8.7 Phosphorus 5.1 Magnesium 2.4 Total Bilirubin 0.9 AST 12 ALT 16 Alkaline Phosphatase 66 Lactate Dehydrogenase 213 Total Protein 6.2 Albumin 4.0 Globulin 2.2 L Albumin/Globulin Ratio 1.8 Carcinoembryonic Ag 2.8 CA 125 Antigen 67.0 H TSH 2.34 09/28/24 10:55 WBC RBC Hgb Hct MCV MCH MCHC RDW Std Deviation Plt Count Neut % (Auto) Lymph % (Auto) [place] % (Auto) Eos % (Auto) Baso % (Auto) Neut # (Auto) Lymph # (Auto) [place] # (Auto) Eos # (Auto) Baso # (Auto) Immature Gran # (Auto) Absolute Nucleated RBC Immature Gran % Nucleated RBC % PT INR Sodium Potassium Chloride Carbon Dioxide Anion Gap BUN Creatinine Estim Creat Clear Calc eGFR BUN/Creatinine Ratio Glucose Estimated Ave Glu mg/dL Hemoglobin A1c Calculated Osmolality Lactic Acid 1.9 Calcium Corrected Calcium Phosphorus Magnesium Total Bilirubin AST ALT Alkaline Phosphatase Lactate Dehydrogenase Total Protein Albumin Globulin Albumin/Globulin Ratio Carcinoembryonic Ag CA 125 Antigen TSH ABG Interpretation ABG results: 09/27/24 07:45 VBG pH 7.45 VBG pCO2 44 VBG pO2 23 VBG Base Excess 6 H Quality Measures Quality Measures none Advance care planning discussed with:: patient Assessment & Plan Assessment Current Active Medications: Generic Name Dose Route Start Last Admin Trade Name Freq PRN Reason Stop Dose Admin Acetaminophen 650 mg 09/27/24 13:14 Acetaminophen 325 Mg Tablet PO 10/27/24 13:13 Q6H PRN Fever >100.4 Acetaminophen 650 mg 09/27/24 13:14 Acetaminophen 325 Mg Tablet PO 10/27/24 13:13 Q6H PRN PAIN SCALE 1-3 (mild Hydrocodone Bitart/Acetaminophen 1 tab 09/27/24 13:14 Hydrocodone/Apap 10/325 Tab PO 10/02/24 13:13 Q4HR PRN PAIN SCALE 7-10 (Severe Acetylcysteine 3 ml 09/27/24 19:00 09/28/24 11:08 Acetylcysteine Rt Linh 10% 4 Ml Nebu INH 10/27/24 18:59 3 ml Q4HRRT KENNETH Administration Albuterol/Ipratropium 3 ml 09/27/24 15:00 09/28/24 11:08 Albuterol/Ipratropium (Duoneb) Rt Linh 3 Ml Nebu INH 10/27/24 14:59 3 ml Q4HRRT KENNETH Administration Albuterol/Ipratropium 3 ml 09/27/24 13:14 Albuterol/Ipratropium (Duoneb) Rt Linh 3 Ml Nebu INH 10/27/24 18:59 Q6HRRT PRN SHORTNESS OF BREATH Atorvastatin Calcium 40 mg 09/27/24 21:00 09/27/24 20:51 Atorvastatin Calcium 20 Mg Tablet PO 10/27/24 20:59 40 mg HS KENNETH Administration Levofloxacin/Dextrose 750 mg in 150 mls @ 100 mls/hr 09/28/24 09:00 09/28/24 09:27 Levaquin Ivpb IV 10/05/24 08:59 100 mls/hr QDAY KENNETH Administration Protocol Losartan Potassium 50 mg 09/27/24 16:30 09/28/24 09:27 Losartan Potassium 25 Mg Tablet PO 10/27/24 16:29 50 mg QDAY KENNETH Administration Methylprednisolone Sodium Succinate 40 mg 09/27/24 21:00 09/28/24 09:28 Methylprednisolone Sod Succ 40 Mg Vial IVP 10/04/24 20:59 40 mg BID KENNETH Administration Mineral Oil 30 ml 09/27/24 13:14 Mineral Oil 30 Ml Udc AL 10/27/24 13:13 QDAY PRN CONSTIPATION Protocol Ondansetron HCl 4 mg 09/27/24 13:14 Ondansetron Inj 2 Mg/Ml Inj 2 Ml IV 10/27/24 13:13 Q6H PRN NAUSEA OR VOMITING Protocol Oxybutynin Chloride 5 mg 09/29/24 09:00 Oxybutynin Chlor 5 Mg Tablet PO 10/29/24 08:59 QDAY KENNETH Oxycodone/Acetaminophen 1 tab 09/27/24 13:14 Oxycodone/Apap 5/325 Tablet PO 10/02/24 13:13 Q6H PRN PAIN SCALE 4-6 (Moderate Pantoprazole Sodium 40 mg 09/28/24 09:00 09/28/24 09:27 Pantoprazole Inj 40 Mg Vial IVP 10/28/24 08:59 40 mg QDAY KENNETH Administration Sennosides 1 tab 09/27/24 13:14 Senna Tablet PO 10/27/24 13:13 QDAY PRN constipation Protocol Plan This is an 84-year-old female admitted for acute hypoxemic respiratory failure 2/2 mucous plug 2/2 pneumonia, COPD with asthma exacerbation. Past medical history includes COPD, asthma, HLD, HTN. Recently failed ANTIBIOTICS and STEROIDS outpatient. Has been desatting in the 70s at home. Document Management Consultant team consulted for possible bronchoscopy and patient underwent bronchoscopy with mucous plug extraction Acute hypoxemic respiratory failure 2/2: Large, left-sided pleural effusion Left-sided atelectasis Pneumonia, community VS community-acquired COPD exacerbation VS asthma exacerbation Recently completed a course of STEROID and Z-DARYN for upper respiratory infection, presenting with worsening shortness of breath, desatting in 70s, not relieved by home oxygen which patient was prescribed temporarily. In ED, afebrile, WBC 11.2, found desatting and requiring 70 L of oxygen. CXR large left pleural effusion, significant left-sided atelectasis, mucous plug, which was also redemonstrated on CT in addition to left mediastinal STEROIDS. ? Telemetry, oxygen as needed ? Started LEVAQUIN 750 mg daily (09/27 to [present]) ? Started METHYLPREDNISOLONE 40 mg BID (09/27 to [present]) ? Started DuoNebs Q6H PRN and Q4H KENNETH ? Started MUCOMYST Q4H ? Completed pleural drainage for small bilateral pleural effusion - Bronchoscopy was done and BAL is sent for Gram stain and cultures. ? Pending cultures: Urine and blood ? Tested negative for cocci IgM ? Pending pleural fluid cytology and culture HTN, HLD ? Resumed home LOSARTAN 50 mg daily ? Resumed home SIMVASTATIN 40 mg daily Hyperactive bladder ? Resumed home oxybutynin 5 Mg daily Chronic shoulder and pain ? Pain control ? Holding home CYCLOBENZAPRINE 5 mg HS Thyroid nodules CT showed bilateral thyroid nodules, largest in right lobe 14 mm TSH 2.34 normal. No symptoms of thyroid abnormalities. ? No indication for intervention at this time. ? Follow-up outpatient with primary care provider Pancreatic mass CT showed 14 mm hypodense mass in the body the pancreas. No complaint of abdominal pain ? Pending MRI abdomen ? Pending CA 19-9, CA125 is mildly elevated. Health maintenance Diet: Regular diet GI prophylaxis: PROTONIX DVT prophylaxis: SCDs Antibiotics: LEVAQUIN CODE STATUS: Full code Disposition: medtele Patient plan of care was discussed with the attending physician, Dr. Moctezuma and senior resident Dr. Timo Davila, PGY1 Attending Provider Attestation/Addendum I reviewed labs, imaging, EKG, home medications and prior available records. Face to face evaluation was performed by me. I have personally examined the patient and discussed assessment and plan with the IM team. I reviewed the resident note and agree with the plan with exceptions as below. Acute hypoxic respiratory failure Left sided pleural effusion Left lower lobe pneumonia Atelectasis of left lung Pancreatic mass Thyroid nodules Repeat chest x-ray showed worsening atelectasis: Discussed with ICU: Will move temporarily to the ICU for bronchoscopy. Bronchoscopy was done and mucous plugs were evacuated. No masses found. Repeat chest x-ray post bronchoscopy. Send BAL to analysis. Continue oxygen therapy IR guided pleurocentesis. Minimal fluids. Ordered abdominal MRI to investigate the pancreatic mass. Send the tumor markers. Showed mildly elevated CA125. Consulted oncology. Order TSH Start IV antibiotics CT scan findings were discussed with the patient/family
[2024-09-28 12:29] LABS: Cocci Serology, IgM Negative (Negative)
[2024-09-28] MEDS: MIDAZOLAM INJ 1 MG/ML VIAL 2 ML 3 MG IV (12:38)
[2024-09-28] MEDS: fentaNYL CIT INJ 50 mCg/ML AMP 2ML 100 MCG IV (12:38)
[2024-09-28] MEDS: LIDOCAINE HCL 1% 20 ML VIAL INFL ×2 (12:40→14:54)
--- NOTE | 2024-09-28 13:25 | PD.PUPROC ---
Procedures Procedure Date / Time 09/28/24 0922 Bronchoscopy Bronscopy indication(s): removal of secretions and diagnostic BAL Informed consent obtained from: patient Time out done and the following verified: correct patient, side and site, procedure and patient position Oxygen delivery: other (25 L/min flow Oxymizer) Vocal cords: symmetric equally mobile Trachea: proximal appears normal, mid appears normal and distal appears normal Evelia: sharp in angle RUL & subsegmental branches: mucosa appears normal RML & subsegmental branches: mucosa appears normal RLL & subsegmental branches: mucosa appears normal NICHOLAS & subsegmental branches: mucus plugging LLL & subsegmental branches: mucus plugging Bronchoalveolar lavage: 120 mL normal saline was used for the bronchial washings in the left upper and lower lobes in total. 40 mL of the above 120 mL was used specifically in the left lower lobe for bronchoalveolar lavage EBL: 1 Patient tolerated procedure: well Complications: No Procedure comment: The patient was sedated with 100 mcg fentanyl and 3 mg IV Versed in total. 20 mL 1% topical lidocaine used to achieve adequate cough suppression medications administered and O2 saturation and vital signs were monitored throughout the procedure and are recorded in the EMR nursing record. The bronchoscope was introduced via the right nares and navigated to the vocal cords. The left upper and lower lobe were visualized to have mucous plugging but more prominently in the left lower lobe. Extremely viscous, thick transparent/pale secretions were suctioned with the aid of repetitive normal saline flushes. I was able to successfully restore patency to the left lower lobe and the distal left lower lobe subsegments were visualized to be patent. Significant friability of the left lower lobe mucosa was identified. Significant mucosal edema and atelectasis was identified obscuring visualization to a certain degree. No obvious endobronchial lesions were seen. A BAL was submitted for Gram stain and culture
--- NOTE | 2024-09-28 13:30 | PD.PUHP ---
Documentation for date of: 09/28/24 [facility] Pulmonology History of Present Illness History of present illness: A pulmonary medicine consultation was requested for Mrs. Coronel who is an 84-year-old female admitted the hospital with acute hypoxic respiratory failure. CT imaging and chest x-ray identifies fluid-filled debris in the esophagus, a hiatal hernia, and left lower lobe collapse. Subsequent chest x-ray today identifies increasing left-sided collapse and ipsilateral retraction of the mediastinum. She has a history of a large hiatal hernia and she underwent reduction of the hernia and fundoplication at [facility] in December 2023. Since then her symptoms from her hiatal hernia have improved including an improvement in appetite and digestion. However a few weeks ago she developed an asthmatic exacerbation associated with increased mucus production as well as nausea and vomiting that she thought was caused by antibiotics. Denies any chest pain or recent bleeding history. Review of Systems Review of Systems Narrative Review of Systems: Constitutional: DENIES; Fevers Eyes: DENIES; Loss of vision Head/Ear/Nose: DENIES; Loss of hearing Throat: DENIES; Dysphagia Cardiovascular: DENIES; Chest pain, dyspnea or syncope Respiratory: SEE HPI +cough, +shortness of breath Gastrointestinal: DENIES; Rectal bleeding or melena. Genitourinary: DENIES; Dysuria (painful or difficult urination) Musculoskeletal: DENIES; Arthralgia (pain in a joint),; Skin: DENIES; Rash Neurological: DENIES; Loss of function or movement Psychiatric: DENIES; recent major life stressor, emotional problem, illicit drug use or abuse Endocrinology: DENIES; Weight change Hematologic/Lymphatic: DENIES; Abnormal bruising Allergic/Immunologic: DENIES; Urticaria (hives) Past Medical History Past Medical History CARDIAC: Positive Hypercholesterolemia and Hypertension RESPIRATORY: Positive Chronic Obstructive Pulmonary Disease (COPD), Asthma, Bronchitis and Pneumonia GASTROINTESTINAL: Positive Gastrointestinal Disorders, Colitis, Irritable Bowel, Hiatal Hernia and Gastroesophageal Reflux Disease GENITOURINARY: Positive Genitourinary Disorders (bladder prolapsed with bladder lift) REPRODUCTIVE: Positive Previous Pregnancies MUSCULOSKELETAL: Positive Musculoskeletal Disorders, Arthritis, Rheumatoid Arthritis, Osteoporosis and Carpal Tunnel Syndrome (bilaterally) ENT: Positive Cataracts OTHER HISTORY: Positive Hospitalization, Shingles, Falls, Chicken Pox and Mumps Family History FAMILY HISTORY: Positive Family Respiratory Disorders, Family Cardiac Disorders, Family Cancer and Family Surgery Surgical History SURGICAL: Positive Hysterectomy; Negative Cardiac Surgery Social History SMOKING STATUS: Never smoker SECOND HAND EXPOSURE: Yes SUBSTANCE USE: does not use Meds Home Medications and Allergies Home Medications ?Medication ?Instructions ?Recorded ?Confirmed ?Type losartan 50 mg tablet 50 mg PO QDAY 02/01/19 09/28/24 History methenamine hippurate 1 gram tablet 1 g PO BID 02/01/19 09/28/24 History montelukast 10 mg tablet 10 mg PO QDAY 04/03/19 09/28/24 History theophylline 300 mg 300 mg PO DAILY 04/03/19 09/28/24 History tablet,extended release,12 hr famotidine 20 mg tablet 20 mg PO QDAY 11/12/22 09/14/23 History loperamide 2 mg capsule 2 mg PO PRN PRN Diarrhea 11/12/22 09/28/24 History mirabegron 50 mg tablet,extended 50 mg PO QDAY 11/12/22 09/14/23 History release 24 hr (Myrbetriq) simvastatin 40 mg tablet 40 mg PO QDAY 11/12/22 09/28/24 History budesonide 1 mg/2 mL suspension 1 mg inhalation QDAY 09/14/23 09/14/23 History for nebulization ipratropium 20 mcg-albuterol 100 2 puff inhalation QID PRN wheezing 09/14/23 09/28/24 History mcg/actuation mist for inhalation (Combivent Respimat) metoclopramide HCl 5 mg tablet 5 mg PO BID 09/14/23 09/14/23 History mirabegron 50 mg tablet,extended 50 mg PO QDAY 09/14/23 09/14/23 History release 24 hr (Myrbetriq) cyclobenzaprine 5 mg tablet 5 mg PO QDAY 09/28/24 09/28/24 History Allergies Allergy/AdvReac Type Severity Reaction Status Date / Time Penicillins Allergy Severe SWELLING, Verified 09/14/23 09:30 RASH Sulfa (Sulfonamide Allergy Intermediate RASH, Verified 09/14/23 09:30 Antibiotics) ITCHING Exam Vital Signs Temp Pulse Resp BP Pulse Ox O2 Del Method O2 Flow Rate 98.1 F 107 H 22 H 123/85 H 99 Nasal Cannula 4 09/28/24 08:00 09/28/24 11:08 09/28/24 11:08 09/28/24 09:27 09/28/24 11:08 09/28/24 08:00 09/28/24 11:08 Narrative Exam GENERAL: Elderly, comfortable on oxygen no acute distress HEENT: no epistaxis, dry mucous membranes, non icteric. atruamatic. RESPIRATORY: Left diminished breath sounds with scattered rales, right clear to auscultation anteriorly CARDIOVASCULAR: RRR, NL S1S2. No M/G/R. Capillary refill 2s ABDOMEN: Soft non tender to palpation EXTREMITIES: 1+ peripheral pulses palpable, No significant edema. SKIN: warm dry intact. NEURO: mental status normal. Answering questions and speaking in full sentences appropriately symmetric motor response to tactile stimuli. Physical Exam Completion Physical Exam Complete?: Yes Results - Roving Changer Labs 09/28/24 04:54 09/28/24 04:54 Labs: Short CBC 09/28/24 Range/Units 04:54 WBC 9.0 (3.6-11.0) Thou/mm3 Hgb 15.2 (12.0-16.0) g/dL Hct 45.1 (36.0-46.0) % Plt Count 314 (140-440) Thou/mm3 [facility] 09/28/24 04:54 Sodium 137 Potassium 4.4 D Chloride 104 Carbon Dioxide 20.5 BUN 20 Creatinine 1.1 Glucose 170 H Calcium 8.7 Liver Function 09/28/24 Range/Units 04:54 Total Bilirubin 0.9 (0.3-1.2) mg/dL AST 12 (0-34) U/L ALT 16 (10-49) U/L Alkaline Phosphatase 66 (46-116) U/L Albumin 4.0 (3.4-4.8) gm/dL ABG Interpretation ABG results: 09/27/24 07:45 VBG pH 7.45 VBG pCO2 44 VBG pO2 23 VBG Base Excess 6 H Assessment & Plan Additional Assessment Additional Assessment: Acute hypoxic respiratory failure: Likely secondary to mucous plugging from aspiration of esophageal/gastric secretions. She has also had a significant cough over the last couple weeks with increased according to the daughter and this may have been related to an asthma exacerbation. The acute asthma exacerbation seems to have resolved however. I agree that she would benefit from a bronchoscopy given the significant mucous plugging, atelectasis which is actually increased despite failing conservative treatment with an Acapella valve and chest percussion therapy. Risk benefits and alternatives to performing a diagnostic/therapeutic bronchoscopy was discussed with the patient as well as the patient's son and daughter who are at bedside. Risks of respiratory depression, and requiring intubation were discussed. After questions were answered the patient as well as her daughter and son agreed and consented to the procedure. Thank you for allowing me to participate in the care of this patient Additional Plan Additional Plan: Provider Notation Provider Notation: Although this document has been carefully reviewed, there may still be some phonetic and other typographical errors. These errors are purely grammatical due to imperfections in the software program and should not be construed in any way to compromise the substance of the patient's medical care during this visit. Thank you for the opportunity and privilege in assisting you with this patient's care and management. Quality Measures Quality Measures none Advance care planning discussed with:: patient
--- NOTE | 2024-09-28 15:24 | XR_ITS ---
Examination: AP chest single view Technique: Sitting AP portable chest single view Exam date and time: September 28, 2024 1546 hrs. Comparison September 28, 2024 Indications: Significant left lung atelectasis history Findings: Improved aeration left lung with atelectasis remaining in the left lower lobe and possibly pneumonia Heart and mediastinum remain shifted to the left but not as severe as on the prior study Intact osseous structures with prominent osteopenia Impression: Improved aeration left lung
--- NOTE | 2024-09-28 16:07 | PD.ONCCONS ---
HPI Data of Consult Consult date: 09/28/24 Requesting Physician: Pj Moctezuma MD Primary Care Provider: Jacqueline Moyer MD Consult Narrative Reason for consult: Pancreatic mass History of present illness: 84-year-old lady admitted with shortness of breath and acute hypoxic respiratory failure secondary to large left-sided pleural effusion and atelectasis and pneumonia. CT chest abdomen pelvis 09/27/2024 revealed bilateral thyroid nodules significant left lung atelectasis with poor aeration of left bronchial airway beyond left mainstem bronchus moderate left pleural fluid and 14 mm hypodense mass body of the pancreas. Underwent bronchoscopy today performed by Dr. Mil Amador, to remove secretion and diagnostic bronchoalveolar lavage. According to op report there was successful anabaptist of patency to left lower lobe and distal left lower lobe segments well-visualized. There was significant friability left lower lobe mucosa obscuring visualization to certain degree but no obvious endobronchial lesions were seen. Was submitted for Gram stain and culture. This a.m. WBC 9.0 hemoglobin 15.2 platelets 314. CMP largely unremarkable with no elevation of the LFTs. Mild elevation of CA125 of 67.0, CEA normal CA 19?9 pending. Patient now referred for oncological consultation. cc:: cc: Pj Moctezuma MD Past Medical History Surgical History OTHER SURGICAL HX: Hiatal hernia repair Social History SOCIAL: Never smoker no alcohol or drug abuse Past Medical History Comments PMH COMMENT: COPD hypertension hyperactive bladder hiatal hernia repair Meds Home Medications and Allergies Home Medications ?Medication ?Instructions ?Recorded ?Confirmed ?Type losartan 50 mg tablet 50 mg PO QDAY 02/01/19 09/28/24 History methenamine hippurate 1 gram tablet 1 g PO BID 02/01/19 09/28/24 History montelukast 10 mg tablet 10 mg PO QDAY 04/03/19 09/28/24 History theophylline 300 mg 300 mg PO DAILY 04/03/19 09/28/24 History tablet,extended release,12 hr famotidine 20 mg tablet 20 mg PO QDAY 11/12/22 09/14/23 History loperamide 2 mg capsule 2 mg PO PRN PRN Diarrhea 11/12/22 09/28/24 History mirabegron 50 mg tablet,extended 50 mg PO QDAY 11/12/22 09/14/23 History release 24 hr (Myrbetriq) simvastatin 40 mg tablet 40 mg PO QDAY 11/12/22 09/28/24 History budesonide 1 mg/2 mL suspension 1 mg inhalation QDAY 09/14/23 09/14/23 History for nebulization ipratropium 20 mcg-albuterol 100 2 puff inhalation QID PRN wheezing 09/14/23 09/28/24 History mcg/actuation mist for inhalation (Combivent Respimat) metoclopramide HCl 5 mg tablet 5 mg PO BID 09/14/23 09/14/23 History mirabegron 50 mg tablet,extended 50 mg PO QDAY 09/14/23 09/14/23 History release 24 hr (Myrbetriq) cyclobenzaprine 5 mg tablet 5 mg PO QDAY 09/28/24 09/28/24 History Allergies Allergy/AdvReac Type Severity Reaction Status Date / Time Penicillins Allergy Severe SWELLING, Verified 09/14/23 09:30 RASH Sulfa (Sulfonamide Allergy Intermediate RASH, Verified 09/14/23 09:30 Antibiotics) ITCHING Exam Vital Signs Temp Pulse Resp BP Pulse Ox O2 Del Method O2 Flow Rate 98.1 F 100 24 H 123/85 H 97 Nasal Cannula 12 09/28/24 08:00 09/28/24 15:28 09/28/24 15:28 09/28/24 09:27 09/28/24 15:28 09/28/24 08:00 09/28/24 15:28 Narrative Exam Patient feeling comfortable following the bronch and clearing of the mucous plugging Results Labs 09/28/24 04:54 09/28/24 04:54 Labs: Short CBC 09/28/24 Range/Units 04:54 WBC 9.0 (3.6-11.0) Thou/mm3 Hgb 15.2 (12.0-16.0) g/dL Hct 45.1 (36.0-46.0) % Plt Count 314 (140-440) Thou/mm3 BMP 09/28/24 04:54 Sodium 137 Potassium 4.4 D Chloride 104 Carbon Dioxide 20.5 BUN 20 Creatinine 1.1 Glucose 170 H Calcium 8.7 Liver Function 09/28/24 Range/Units 04:54 Total Bilirubin 0.9 (0.3-1.2) mg/dL AST 12 (0-34) U/L ALT 16 (10-49) U/L Alkaline Phosphatase 66 (46-116) U/L Albumin 4.0 (3.4-4.8) gm/dL ABG Interpretation ABG results: 09/27/24 07:45 VBG pH 7.45 VBG pCO2 44 VBG pO2 23 VBG Base Excess 6 H Assessment and Plan Additional Assessment & Plan Additional Plan: 1. Admitted with hypoxic respiratory failure greatly improved symptoms following bronchoscopy and alleviation of mucous plugging. 2. CT shows incidental finding of 14 mm hypodense mass body the pancreas, not noted on CT of 1 year ago. 3. CEA normal CA125 mildly elevated CA 19?9 pending. MRI abdomen pending. 4. Will follow. Thank you for allow me to evaluate this patient.
[2024-09-28] MEDS: ATORVASTATIN CALCIUM 20 MG TABLET 40 MG PO (20:54)
[2024-09-29] VITALS (10 sets, daily range): BP systolic 97–136; BP diastolic 56–71; PULSE 77–99; RESP 12–23; TEMP 36.3–37.1; O2SAT 94–99
--- NOTE | 2024-09-29 | XR_ITS ---
Examination: MRI abdomen with intravenous contrast. MRI abdomen without intravenous contrast. Date and time of exam: September 29, 2024 1408 hrs. Indications: CT examination abdomen September 27, 2024 14 mm hypodense mass body the pancreas Technique: Multiple axial, sagittal and coronal sections of the abdomen obtained. Transverse images, TR 6020, TE 107. T1 weighted transverse images, TR 582, TE 9.5. T2-weighted sagittal images, TR 4000, TE 105. T2-weighted sagittal images, TR 4000, TE 5. Coronal images, TR 4210, TE 107. Axial and coronal images are obtained post 14 cc intravenous injection, gadolinium. Findings: No focal liver or splenic lesions 14 mm mass body the pancreas increased signal on the T2-weighted images This area does not enhance on the postcontrast images No hydronephrosis No free fluid in the abdomen Contracted gallbladder No extrahepatic biliary stones Impression: 14 mm probable cyst body of the pancreas, recommend 3-6 month follow-up CT abdomen pelvis contrast follow-up
[2024-09-29 05:22] LABS: Basophils % (Auto) 0 % (0-2.5); Eosinophils % (Auto) 0 % (0-10); Hematocrit 39.3 % (36.0-46.0); Hemoglobin 13.3 g/dL (12.0-16.0); Immature Granulocytes % (Auto) 1 % (0-0); Immature Granulocytes Auto 0.13 Thou/mm3 (0.00-0.00); Lymphocytes # (Auto) 0.1 Thou/mm3 (1.0-4.8); Lymphocytes % (Auto) 1 % (10-50); Mean Corpuscular HGB Conc 33.8 g/dl (31.0-37.0); Mean Corpuscular Hemoglobin 30.2 pg (25.0-35.0); Mean Corpuscular Volume 89 fL (80-100); Monocytes # (Auto) 0.3 Thou/mm3 (0.0-0.8); Monocytes % (Auto) 2 % (0-12); Neutrophils # (Auto) 14.4 Thou/mm3 (1.8-7.7); Neutrophils % (Auto) 96 % (37-80); Nucleated Red Blood Cell % 0 /100 WBC (0); Platelet Count 268 Thou/mm3 (140-440); RDW Standard Deviation 44.4 fL (36.4-46.3)
[2024-09-29 06:00] LABS: Alanine Aminotransferase 14 U/L (10-49); Albumin, Serum 3.7 gm/dL (3.4-4.8); Albumin/Globulin Ratio 1.9 (1.2-2.2); Alkaline Phosphatase 54 U/L (46-116); Anion Gap 9 (7-16); Aspartate Amino Transferase < 8 U/L (0-34); BUN/Creatinine Ratio 29 Ratio (12-20); Bilirubin,Total 0.6 mg/dL (0.3-1.2); Blood Urea Nitrogen 38 mg/dL (9-23); Calcium 8.5 mg/dL (8.3-10.6); Calcium (Corrected) 8.7 mg/dL (8.5-10.1); Carbon Dioxide 23.7 mMol/L (20.0-31.0); Chloride 103 mMol/L (98-107); Creatinine (Component) 1.3 mg/dL (0.6-1.3); Estimated Creatinine Clearance 24.7 mL/min (>60); Globulin 1.9 gm/dL (2.3-3.5); Glucose 216 mg/dL (74-106); Magnesium 2.6 mg/dL (1.6-2.6); Osmolality,Calculated 287 (275-295); Phosphorous 4.5 mg/dL (2.4-5.1); Potassium 4.1 mMol/L (3.4-5.1); Sodium 136 mMol/L (136-145); Total Protein 5.6 gm/dL (5.7-8.2); eGFR 40 See Note
[2024-09-29] MEDS: ACETYLCYSTEINE RT SOL 10% 4 ML NEBU 3 ML INH ×2 (06:11→10:28)
[2024-09-29] MEDS: ALBUTEROL/IPRATROPIUM (Duoneb) RT SOL 3 ML NEBU INH ×3 (06:11→19:10)
[2024-09-29] MEDS: LOSARTAN POTASSIUM 25 MG TABLET 50 MG PO (08:36)
[2024-09-29] MEDS: LEVOFLOXACIN/D5W 750MG IVPB 750 MG/150 ML BAG 100 MG IV (08:36)
[2024-09-29] MEDS: OXYBUTYNIN CHLOR 5 MG TABLET PO (08:36)
[2024-09-29] MEDS: PANTOPRAZOLE INJ 40 MG VIAL IVP (08:37)
--- NOTE | 2024-09-29 12:47 | PD.RESPRO ---
Documentation for date of: 09/29/24 Subjective Subjective Interval history: Patient was seen and examined bedside. Reported that she is doing well and denies any other complaints. Still on oxygen through nasal cannula. Pending MRI scheduled later in the day. If needed, will repeat chest x-ray tomorrow if the saturations are not maintaining well Exam Vital Signs Temp Pulse Resp BP Pulse Ox O2 Del Method O2 Flow Rate 98.7 F 99 18 136/68 H 96 Nasal Cannula 3 09/29/24 12:00 09/29/24 12:00 09/29/24 12:00 09/29/24 12:00 09/29/24 12:00 09/29/24 12:00 09/29/24 12:00 Narrative Exam General: Awake. Frail. On oxygen through nasal cannula. HEENT: Normocephalic, atraumatic, mucous membranes moist. Heart: Regular rate and rhythm, no murmurs. Lungs: Bilateral decreased breath sounds are noted. Abdomen: Soft, nondistended, nontender, positive bowel sounds. ?No guarding or rebound tenderness. Neurologic: Alert and oriented x3, no gross neurological deficit, and patient able to move all 4 extremities. Extremities: No edema. Skin: No rash or ecchymoses. Objective Labs 09/30/24 04:51 09/30/24 04:51 Labs: Laboratory Results - last 24 hr 09/29/24 04:40 WBC 15.0 H D RBC 4.40 Hgb 13.3 Hct 39.3 MCV 89 MCH 30.2 MCHC 33.8 RDW Std Deviation 44.4 Plt Count 268 D Neut % (Auto) 96 H Lymph % (Auto) 1 L Burnett % (Auto) 2 Eos % (Auto) 0 Baso % (Auto) 0 Neut # (Auto) 14.4 H Lymph # (Auto) 0.1 L Burnett # (Auto) 0.3 Eos # (Auto) 0.0 Baso # (Auto) 0.0 Immature Gran # (Auto) 0.13 H Absolute Nucleated RBC 0.00 Immature Gran % 1 H Nucleated RBC % 0 Sodium 136 Potassium 4.1 Chloride 103 Carbon Dioxide 23.7 Anion Gap 9 BUN 38 H Creatinine 1.3 Estim Creat Clear Calc 24.7 L eGFR 40 L BUN/Creatinine Ratio 29 H Glucose 216 H Calculated Osmolality 287 Calcium 8.5 Corrected Calcium 8.7 Phosphorus 4.5 Magnesium 2.6 Total Bilirubin 0.6 AST < 8 ALT 14 Alkaline Phosphatase 54 Total Protein 5.6 L Albumin 3.7 Globulin 1.9 L Albumin/Globulin Ratio 1.9 ABG Interpretation ABG results: 09/27/24 07:45 VBG pH 7.45 VBG pCO2 44 VBG pO2 23 VBG Base Excess 6 H Quality Measures Quality Measures none Advance care planning discussed with:: patient Assessment & Plan Assessment Current Active Medications: Generic Name Dose Route Start Last Admin Trade Name Freq PRN Reason Stop Dose Admin Acetaminophen 650 mg 09/27/24 13:14 Acetaminophen 325 Mg Tablet PO 10/27/24 13:13 Q6H PRN Fever >100.4 Acetaminophen 650 mg 09/27/24 13:14 Acetaminophen 325 Mg Tablet PO 10/27/24 13:13 Q6H PRN PAIN SCALE 1-3 (mild Hydrocodone Bitart/Acetaminophen 1 tab 09/27/24 13:14 Hydrocodone/Apap 10/325 Tab PO 10/02/24 13:13 Q4HR PRN PAIN SCALE 7-10 (Severe Acetylcysteine 3 ml 09/27/24 19:00 09/29/24 10:28 Acetylcysteine Rt Linh 10% 4 Ml Nebu INH 10/27/24 18:59 3 ml Q4HRRT KENNETH Administration Albuterol/Ipratropium 3 ml 09/27/24 15:00 09/29/24 10:28 Albuterol/Ipratropium (Duoneb) Rt Linh 3 Ml Nebu INH 10/27/24 14:59 3 ml Q4HRRT KENNETH Administration Albuterol/Ipratropium 3 ml 09/27/24 13:14 Albuterol/Ipratropium (Duoneb) Rt Linh 3 Ml Nebu INH 10/27/24 18:59 Q6HRRT PRN SHORTNESS OF BREATH Atorvastatin Calcium 40 mg 09/27/24 21:00 09/28/24 20:54 Atorvastatin Calcium 20 Mg Tablet PO 10/27/24 20:59 40 mg HS KENNETH Administration Levofloxacin/Dextrose 750 mg in 150 mls @ 100 mls/hr 09/28/24 09:00 09/29/24 08:36 Levaquin Ivpb IV 10/05/24 08:59 100 mls/hr QDAY KENNETH Administration Protocol Losartan Potassium 50 mg 09/27/24 16:30 09/29/24 08:36 Losartan Potassium 25 Mg Tablet PO 10/27/24 16:29 50 mg QDAY KENNETH Administration Mineral Oil 30 ml 09/27/24 13:14 Mineral Oil 30 Ml Udc [place] 10/27/24 13:13 QDAY PRN CONSTIPATION Protocol Ondansetron HCl 4 mg 09/27/24 13:14 Ondansetron Inj 2 Mg/Ml Inj 2 Ml IV 10/27/24 13:13 Q6H PRN NAUSEA OR VOMITING Protocol Oxybutynin Chloride 5 mg 09/29/24 09:00 09/29/24 08:36 Oxybutynin Chlor 5 Mg Tablet PO 10/29/24 08:59 5 mg QDAY KENNETH Administration Oxycodone/Acetaminophen 1 tab 09/27/24 13:14 Oxycodone/Apap 5/325 Tablet PO 10/02/24 13:13 Q6H PRN PAIN SCALE 4-6 (Moderate Pantoprazole Sodium 40 mg 09/28/24 09:00 09/29/24 08:37 Pantoprazole Inj 40 Mg Vial IVP 10/28/24 08:59 40 mg QDAY KENNETH Administration Sennosides 1 tab 09/27/24 13:14 Senna Tablet PO 10/27/24 13:13 QDAY PRN constipation Protocol Plan This is an 84-year-old female admitted for acute hypoxemic respiratory failure 2/2 mucous plug 2/2 pneumonia, COPD with asthma exacerbation. Past medical history includes COPD, asthma, HLD, HTN. Recently failed ANTIBIOTICS and STEROIDS outpatient. Has been desatting in the 70s at home. [employer] team consulted for possible bronchoscopy and patient underwent bronchoscopy with mucous plug extraction Acute hypoxemic respiratory failure 2/2: Left-sided atelectasis Pneumonia, community VS community-acquired Recently completed a course of STEROID and Z-DARYN for upper respiratory infection, presenting with worsening shortness of breath, desatting in 70s, not relieved by home oxygen which patient was prescribed temporarily. In ED, afebrile, WBC 11.2, found desatting and requiring 70 L of oxygen. CXR large left pleural effusion, significant left-sided atelectasis, mucous plug, which was also redemonstrated on CT in addition to left mediastinal STEROIDS. ? Telemetry, oxygen as needed ? Started LEVAQUIN 750 mg daily (09/27 to [present]) ? Started DuoNebs Q6H PRN and Q4H KENNETH - Bronchoscopy was done, close plug extracted and BAL is sent for Gram stain and cultures -1+ gram-positive cocci -Repeat chest x-ray was done that showed improvement of left lung atelectasis. ? Blood cultures showed no growth after 48 hours. ? Tested negative for cocci IgM HTN, HLD ? Resumed home LOSARTAN 50 mg daily Hyperactive bladder ? Resumed home oxybutynin 5 Mg daily Chronic shoulder and pain ? Pain control ? Holding home CYCLOBENZAPRINE 5 mg HS Thyroid nodules CT showed bilateral thyroid nodules, largest in right lobe 14 mm TSH 2.34 normal. No symptoms of thyroid abnormalities. ? No indication for intervention at this time. ? Follow-up outpatient with primary care provider Pancreatic mass CT showed 14 mm hypodense mass in the body the pancreas. No complaint of abdominal pain ? Pending MRI abdomen ? Pending CA 19-9, CA125 is mildly elevated. Health maintenance Diet: Regular diet GI prophylaxis: PROTONIX DVT prophylaxis: SCDs Antibiotics: LEVAQUIN CODE STATUS: Full code Disposition: [facility] Patient plan of care was discussed with the attending physician, Dr. Rhianna Davila, PGY1 Attending Provider Attestation/Addendum I reviewed labs, imaging, EKG, home medications and prior available records. Face to face evaluation was performed by me. I have personally examined the patient and discussed assessment and plan with the IM team. I reviewed the resident note and agree with the plan with exceptions as below. Acute hypoxic respiratory failure Left sided pleural effusion Left lower lobe pneumonia Atelectasis of left lung Pancreatic mass Thyroid nodules Repeat chest x-ray showed worsening atelectasis: Discussed with ICU: Will move temporarily to the ICU for bronchoscopy. Bronchoscopy was done and mucous plugs were evacuated. No masses found. Repeat chest x-ray post bronchoscopy. Send BAL to analysis. Continue oxygen therapy IR guided pleurocentesis. Minimal fluids. Ordered abdominal MRI to investigate the pancreatic mass. Send the tumor markers. Showed mildly elevated CA125. Consulted oncology Who will follow the patient. Order TSH: WNL Start IV antibiotics CT scan findings were discussed with the patient/family
[2024-09-29 15:37] LABS: Cocci Serology, IgG Negative (Negative)
[2024-09-29] MEDS: ATORVASTATIN CALCIUM 20 MG TABLET 40 MG PO (20:26)
[2024-09-30] VITALS (10 sets, daily range): BP systolic 114–136; BP diastolic 56–72; PULSE 74–92; RESP 18–94; TEMP 36.2–36.8; O2SAT 92–100
[2024-09-30 06:13] LABS: Alanine Aminotransferase 10 U/L (10-49); Albumin, Serum 3.6 gm/dL (3.4-4.8); Albumin/Globulin Ratio 2.1 (1.2-2.2); Alkaline Phosphatase 47 U/L (46-116); Anion Gap 7 (7-16); Aspartate Amino Transferase 10 U/L (0-34); BUN/Creatinine Ratio 26 Ratio (12-20); Bilirubin,Total 0.5 mg/dL (0.3-1.2); Blood Urea Nitrogen 29 mg/dL (9-23); Calcium 9.1 mg/dL (8.3-10.6); Calcium (Corrected) 9.4 mg/dL (8.5-10.1); Carbon Dioxide 26.1 mMol/L (20.0-31.0); Chloride 104 mMol/L (98-107); Creatinine (Component) 1.1 mg/dL (0.6-1.3); Estimated Creatinine Clearance 28.2 mL/min (>60); Globulin 1.7 gm/dL (2.3-3.5); Glucose 142 mg/dL (74-106); Magnesium 2.5 mg/dL (1.6-2.6); Osmolality,Calculated 281 (275-295); Phosphorous 4.1 mg/dL (2.4-5.1); Potassium 4.4 mMol/L (3.4-5.1); Sodium 137 mMol/L (136-145); Total Protein 5.3 gm/dL (5.7-8.2); eGFR 49 See Note
[2024-09-30] MEDS: ALBUTEROL/IPRATROPIUM (Duoneb) RT SOL 3 ML NEBU INH ×2 (06:41)
[2024-09-30 06:49] LABS: Basophils % (Auto) 0 % (0-2.5); Eosinophils % (Auto) 0 % (0-10); Hematocrit 36.5 % (36.0-46.0); Hemoglobin 12.5 g/dL (12.0-16.0); Immature Granulocytes % (Auto) 1 % (0-0); Immature Granulocytes Auto 0.17 Thou/mm3 (0.00-0.00); Lymphocytes # (Auto) 0.4 Thou/mm3 (1.0-4.8); Lymphocytes % (Auto) 2 % (10-50); Mean Corpuscular HGB Conc 34.2 g/dl (31.0-37.0); Mean Corpuscular Hemoglobin 31.1 pg (25.0-35.0); Mean Corpuscular Volume 91 fL (80-100); Monocytes # (Auto) 1.2 Thou/mm3 (0.0-0.8); Monocytes % (Auto) 8 % (0-12); Neutrophils % (Auto) 88 % (37-80); Nucleated Red Blood Cell % 0 /100 WBC (0); Platelet Count 263 Thou/mm3 (140-440); RDW Standard Deviation 44.3 fL (36.4-46.3); Red Blood Count 4.02 Miln/mm3 (4.00-5.20); White Blood Count 14.8 Thou/mm3 (3.6-11.0)
[2024-09-30] MEDS: LEVOFLOXACIN/D5W 750MG IVPB 750 MG/150 ML BAG 100 MG IV (08:42)
[2024-09-30] MEDS: LOSARTAN POTASSIUM 25 MG TABLET 50 MG PO (08:42)
[2024-09-30] MEDS: OXYBUTYNIN CHLOR 5 MG TABLET PO (08:43)
[2024-09-30] MEDS: PANTOPRAZOLE INJ 40 MG VIAL IVP (08:43)
--- NOTE | 2024-09-30 10:17 | XR_ITS ---
Examination: AP chest single view Technique: AP portable semiupright chest single view Exam date and time: September 30, 2024 1045 hrs. Comparison September 28, 2024 Indications: History left lung atelectasis, status post mucous plug removal Findings: Pneumonia and/or atelectasis left base Mild enlargement cardiac contour Possible moderate layered pleural fluid Impression: Atelectasis and/or pneumonia at the left lung base, clinical correlation advised
--- NOTE | 2024-09-30 13:33 | PD.RESPRO ---
Documentation for date of: 09/30/24 Subjective Subjective Interval history: Patient was seen and examined at bedside this AM. No acute events overnight. She is tolerating diet, adequate urine output and mentation is at baseline. Patient endorses significant improvement of SOB. She was taken off of [place] oxygen today, will request nurse to ambulate patient. Will monitor for x1 more day off of NC. Pending final PT evaluation. Exam Vital Signs Temp Pulse Resp BP Pulse Ox O2 Del Method O2 Flow Rate 98.2 F 80 25 H 125/63 94 L Room Air 3 09/30/24 12:00 09/30/24 12:00 09/30/24 12:00 09/30/24 12:00 09/30/24 12:00 09/30/24 12:09/30/24 08:00 Narrative Exam Constitutional Alert, oriented x4 , elderly HEENT Vision grossly intact. Patent nares. Trachea midline. Respiratory Chest normal on inspection and clear to auscultation bilaterally. Cardiovascular S1 and S2 audible, RRR. No murmurs or carotid bruit. No gross JVD. Abdominal Soft and non tender to palpation in all quadrants. BS + Genitourinary No bladder tenderness, no flank pain. Normal to palpation. Musculoskeletal Extremities tone within normal limits. No LE edema. Neurological CN II - XII grossly intact. Extremity motor and sensation grossly intact. Skin Warm, dry and intact. Senile purpura Psychiatric Patient has a good affect, is cooperative. Objective Labs 09/30/24 04:51 09/30/24 04:51 Labs: Laboratory Results - last 24 hr 09/27/24 09/30/24 14:28 04:51 WBC 14.8 H RBC 4.02 Hgb 12.5 Hct 36.5 MCV 91 MCH 31.1 MCHC 34.2 RDW Std Deviation 44.3 Plt Count 263 Neut % (Auto) 88 H Lymph % (Auto) 2 L [place] % (Auto) 8 Eos % (Auto) 0 Baso % (Auto) 0 Neut # (Auto) 13.0 H Lymph # (Auto) 0.4 L [place] # (Auto) 1.2 H Eos # (Auto) 0.0 Baso # (Auto) 0.0 Immature Gran # (Auto) 0.17 H Absolute Nucleated RBC 0.00 Immature Gran % 1 H Nucleated RBC % 0 Sodium 137 Potassium 4.4 Chloride 104 Carbon Dioxide 26.1 Anion Gap 7 BUN 29 H Creatinine 1.1 Estim Creat Clear Calc 28.2 L eGFR 49 L BUN/Creatinine Ratio 26 H Glucose 142 H D Calculated Osmolality 281 Calcium 9.1 Corrected Calcium 9.4 Phosphorus 4.1 Magnesium 2.5 Total Bilirubin 0.5 AST 10 ALT 10 Alkaline Phosphatase 47 Total Protein 5.3 L Albumin 3.6 Globulin 1.7 L Albumin/Globulin Ratio 2.1 Coccidioides IgG Ab Negative ABG Interpretation ABG results: 09/27/24 07:45 VBG pH 7.45 VBG pCO2 44 VBG pO2 23 VBG Base Excess 6 H Quality Measures Quality Measures none Advance care planning discussed with:: patient and child Assessment & Plan Assessment Current Active Medications: Generic Name Dose Route Start Last Admin Trade Name Freq PRN Reason Stop Dose Admin Acetaminophen 650 mg 09/27/24 13:14 Acetaminophen 325 Mg Tablet PO 10/27/24 13:13 Q6H PRN Fever >100.4 Acetaminophen 650 mg 09/27/24 13:14 Acetaminophen 325 Mg Tablet PO 10/27/24 13:13 Q6H PRN PAIN SCALE 1-3 (mild Hydrocodone Bitart/Acetaminophen 1 tab 09/27/24 13:14 Hydrocodone/Apap 10/325 Tab PO 10/02/24 13:13 Q4HR PRN PAIN SCALE 7-10 (Severe Albuterol/Ipratropium 3 ml 09/27/24 13:14 Albuterol/Ipratropium (Duoneb) Rt Linh 3 Ml Nebu INH 10/27/24 18:59 Q6HRRT PRN SHORTNESS OF BREATH Atorvastatin Calcium 40 mg 09/27/24 21:00 09/29/24 20:26 Atorvastatin Calcium 20 Mg Tablet PO 10/27/24 20:59 40 mg HS KENNETH Administration Levofloxacin 750 mg 10/01/24 09:00 Levofloxacin 250 Mg Tablet PO 10/08/24 08:59 Q48H KENNETH Losartan Potassium 50 mg 09/27/24 16:30 09/30/24 08:42 Losartan Potassium 25 Mg Tablet PO 10/27/24 16:29 50 mg QDAY KENNETH Administration Mineral Oil 30 ml 09/27/24 13:14 Mineral Oil 30 Ml Udc [place] 10/27/24 13:13 QDAY PRN CONSTIPATION Protocol Ondansetron HCl 4 mg 09/27/24 13:14 Ondansetron Inj 2 Mg/Ml Inj 2 Ml IV 10/27/24 13:13 Q6H PRN NAUSEA OR VOMITING Protocol Oxybutynin Chloride 5 mg 09/29/24 09:00 09/30/24 08:43 Oxybutynin Chlor 5 Mg Tablet PO 10/29/24 08:59 5 mg QDAY KENNETH Administration Oxycodone/Acetaminophen 1 tab 09/27/24 13:14 Oxycodone/Apap 5/325 Tablet PO 10/02/24 13:13 Q6H PRN PAIN SCALE 4-6 (Moderate Pantoprazole Sodium 40 mg 09/28/24 09:00 09/30/24 08:43 Pantoprazole Inj 40 Mg Vial IVP 10/28/24 08:59 40 mg QDAY KENNETH Administration Sennosides 1 tab 09/27/24 13:14 Senna Tablet PO 10/27/24 13:13 QDAY PRN constipation Protocol Plan Ms Coronel is an 84-year-old female admitted for acute hypoxemic respiratory failure 2/2 mucous plug 2/2 pneumonia, COPD with asthma exacerbation. Past medical history includes COPD, asthma, HLD, HTN. Recently failed ANTIBIOTICS and STEROIDS outpatient. Has been desatting in the 70s at home. [employer] team consulted for possible bronchoscopy and patient underwent bronchoscopy with mucous plug extraction 1. Acute hypoxemic respiratory failure In the setting of 2. Left-sided atelectasis 3. Left sided pleural effusion Secondary to 4. LT main bronchus mucus plus s/p removal 5. Pneumonia, community VS community-acquired Recently completed a course of STEROID and Z-DARYN for upper respiratory infection, presenting with worsening shortness of breath, desatting in 70s, not relieved by home oxygen which patient was prescribed temporarily. In ED, afebrile - WBC 11.2, found desatting and requiring 70 L of oxygen. - CXR : large left pleural effusion, significant left-sided atelectasis, mucous plug, which was also redemonstrated on CT in addition to left mediastinal STEROIDS. - 09/27 IR guided pleurocentesis, minimal fluids. Discussed with ICU, will move temporarily to the ICU for bronchoscopy. - 09/[address] Perry brown extracted ? Tested negative for cocci IgM - 09/28 Repeat chest x-ray : improvement of left lung atelectasis. ? Blood cultures showed no growth after 48 hours. - 09/29 BAL Gram stain and cultures : 1+ gram-positive cocci Plan: ? Admit to telemetry, oxygen as needed ? Switched IV -> P.O. LEVAQUIN 750 mg daily (09/27 - 10/03) ? DuoNebs Q6H PRN and Q4H for wheezing Repeat CXR ordered for evaluation. PT evaluation to be done tomorrow to ensure safe discharge. 6. Essential HTN 7. HLD Resumed home LOSARTAN 50 mg daily 8. Overactive bladder Resumed home oxybutynin 5 Mg daily 9. Chronic shoulder and pain Resumed home CYCLOBENZAPRINE 5 mg HS 10. Thyroid nodules CT showed bilateral thyroid nodules, largest in right lobe 14 mm TSH 2.34 normal. No symptoms of thyroid abnormalities. ? No indication for intervention at this time. ? Follow-up outpatient with primary care provider 11. Pancreatic mass 12. Thyroid nodules - CT : 14 mm hypodense mass in the body the pancreas. No complaint of abdominal pain - MRI abdo : 14 mm probable cyst body of the pancreas, recommend 3-6 month follow-up - CA125 is mildly elevated - CEA wnl - CA19-9 pending Plan: - Dr Eli consulted, appreciate recommendations - Patient and family informed of findings, comprehend - Follow up with oncology outpatient for further monitoring Health maintenance Disposition: Repeat CXR ordered for evaluation. PT evaluation to be done tomorrow to ensure safe discharge. Diet: Regular diet GI prophylaxis: PROTONIX DVT prophylaxis: SCDs Antibiotics: LEVAQUIN CODE STATUS: Full code Plan of care discussed with attending Art Jeronimo M.D. PGY2 Attending Provider Attestation/Addendum I reviewed labs, imaging, EKG, home medications and prior available records. Face to face evaluation was performed by me. I have personally examined the patient and discussed assessment and plan with the IM team. I reviewed the resident note and agree with the plan with exceptions as below. Acute hypoxic respiratory failure Left sided pleural effusion Left lower lobe pneumonia Atelectasis of left lung Pancreatic mass Thyroid nodules Status post bronchoscopy with mucous plug removal. Repeat chest x-ray showed expansion of left lung. Continue oxygen therapy: Oxygen requirements are downtrending IR guided pleurocentesis. Minimal fluids. Ordered abdominal MRI to investigate the pancreatic mass: Showed cystic mass likely simple cyst and unlikely malignancy. Send the tumor markers. Showed mildly elevated CA125. Consulted oncology Who will follow the patient. Order TSH: WNL Continue antibiotics Follow-up PT evaluation
--- NOTE | 2024-09-30 15:37 | PD.ADDDSCHGE ---
Addendum Discharge Addendum Date of report being addended: 10/01/24 Narrative: I reviewed labs, imaging, EKG, home medications and prior available records. Face to face evaluation was performed by me. I have personally examined the patient and discussed assessment and plan with the IM team. I reviewed the resident note and agree with the plan with exceptions as below. Acute hypoxic respiratory failure Left sided pleural effusion Left lower lobe pneumonia Atelectasis of left lung Pancreatic mass Thyroid nodules Status post bronchoscopy with mucous plug removal. Repeat chest x-ray showed expansion of left lung. She is on room air. IR guided pleurocentesis. Minimal fluids. Ordered abdominal MRI to investigate the pancreatic mass: Showed cystic mass likely simple cyst and unlikely malignancy. Send the tumor markers. Showed mildly elevated CA125. Consulted oncology Who will follow the patient. Repeat CT abdomen/pelvis in 3 to 6 months. Order TSH: WNL Continue antibiotics: P.o. levofloxacin Follow-up PT evaluation: Known Time spent is 40 minutes. More than 50% of the time was spent on patient education and coordination of care.
[2024-09-30] MEDS: ATORVASTATIN CALCIUM 20 MG TABLET 40 MG PO (20:10)
[2024-10-01] VITALS (8 sets, daily range): BP systolic 112–128; BP diastolic 60–68; PULSE 65–94; RESP 16–91; TEMP 36.3–36.8; O2SAT 90–98
[2024-10-01] MEDS: ALBUTEROL/IPRATROPIUM (Duoneb) RT SOL 3 ML NEBU INH (03:20)
[2024-10-01 05:52] LABS: Basophils % (Auto) 0 % (0-2.5); Eosinophils % (Auto) 0 % (0-10); Hematocrit 39.3 % (36.0-46.0); Hemoglobin 12.9 g/dL (12.0-16.0); Immature Granulocytes % (Auto) 1 % (0-0); Immature Granulocytes Auto 0.11 Thou/mm3 (0.00-0.00); Lymphocytes % (Auto) 10 % (10-50); Mean Corpuscular HGB Conc 32.8 g/dl (31.0-37.0); Mean Corpuscular Hemoglobin 30.7 pg (25.0-35.0); Mean Corpuscular Volume 94 fL (80-100); Monocytes # (Auto) 1.1 Thou/mm3 (0.0-0.8); Monocytes % (Auto) 10 % (0-12); Neutrophils # (Auto) 8.1 Thou/mm3 (1.8-7.7); Neutrophils % (Auto) 78 % (37-80); Nucleated Red Blood Cell % 0 /100 WBC (0); Platelet Count 227 Thou/mm3 (140-440); RDW Standard Deviation 45.7 fL (36.4-46.3); White Blood Count 10.3 Thou/mm3 (3.6-11.0)
[2024-10-01 06:21] LABS: Alanine Aminotransferase 17 U/L (10-49); Albumin, Serum 3.4 gm/dL (3.4-4.8); Albumin/Globulin Ratio 1.9 (1.2-2.2); Alkaline Phosphatase 52 U/L (46-116); Anion Gap 9 (7-16); Aspartate Amino Transferase 21 U/L (0-34); BUN/Creatinine Ratio 28 Ratio (12-20); Bilirubin,Total 0.6 mg/dL (0.3-1.2); Blood Urea Nitrogen 28 mg/dL (9-23); Calcium 9.1 mg/dL (8.3-10.6); Calcium (Corrected) 9.6 mg/dL (8.5-10.1); Carbon Dioxide 25.3 mMol/L (20.0-31.0); Chloride 106 mMol/L (98-107); Globulin 1.8 gm/dL (2.3-3.5); Glucose 78 mg/dL (74-106); Magnesium 2.3 mg/dL (1.6-2.6); Osmolality,Calculated 283 (275-295); Phosphorous 3.7 mg/dL (2.4-5.1); Potassium 3.9 mMol/L (3.4-5.1); Sodium 140 mMol/L (136-145); Total Protein 5.2 gm/dL (5.7-8.2); eGFR 55 See Note
--- NOTE | 2024-10-01 07:20 | PC.NURSE ---
Pt. refuses bed alarm, pt. educated on fall risks and precautions and agrees to education. Pt. pending PT eval.
--- NOTE | 2024-10-01 07:47 | PC.NURSE ---
Dr. Espinoza made aware pt. .reports cough has returned and it is bothersome. pt. saturating 87-89% on RA. orders to put pt. back on O2 1.5 L NASAL cannula, and I will come see the patient.
--- NOTE | 2024-10-01 07:57 | PC.NURSE ---
RT aware of order for X1 breathing treatment
--- NOTE | 2024-10-01 08:09 | PD.ONCPROG ---
Documentation for date of: 10/01/24 Subjective Subjective Interval history: Patient feels better overall awaiting discharge. Abdominal MRI indicates probable cyst body the pancreas. Chest x-ray shows atelectasis and or pneumonia left lung base. Exam Vital Signs Temp Pulse Resp BP Pulse Ox O2 Del Method O2 Flow Rate 97.4 F 72 20 112/60 91 L Room Air 3 10/01/24 04:00 10/01/24 07:18 10/01/24 07:18 10/01/24 04:00 10/01/24 07:18 10/01/24 04:00 09/30/24 16:00 Objective Labs 10/01/24 04:44 10/01/24 04:44 Labs: Laboratory Results - last 24 hr 10/01/24 04:44 WBC 10.3 RBC 4.20 Hgb 12.9 Hct 39.3 MCV 94 MCH 30.7 MCHC 32.8 RDW Std Deviation 45.7 Plt Count 227 D Neut % (Auto) 78 Lymph % (Auto) 10 Bailey % (Auto) 10 Eos % (Auto) 0 Baso % (Auto) 0 Neut # (Auto) 8.1 H Lymph # (Auto) 1.0 Bailey # (Auto) 1.1 H Eos # (Auto) 0.0 Baso # (Auto) 0.0 Immature Gran # (Auto) 0.11 H Absolute Nucleated RBC 0.00 Immature Gran % 1 H Nucleated RBC % 0 Sodium 140 Potassium 3.9 D Chloride 106 Carbon Dioxide 25.3 Anion Gap 9 BUN 28 H Creatinine 1.0 Estim Creat Clear Calc 31.0 L eGFR 55 L BUN/Creatinine Ratio 28 H Glucose 78 D Calculated Osmolality 283 Calcium 9.1 Corrected Calcium 9.6 Phosphorus 3.7 Magnesium 2.3 Total Bilirubin 0.6 AST 21 ALT 17 Alkaline Phosphatase 52 Total Protein 5.2 L Albumin 3.4 Globulin 1.8 L Albumin/Globulin Ratio 1.9 ABG Interpretation ABG results: 09/27/24 07:45 VBG pH 7.45 VBG pCO2 44 VBG pO2 23 VBG Base Excess 6 H Assessment & Plan A&P Narrative 1. Admitted with hypoxic respiratory failure greatly improved symptoms following bronchoscopy and alleviation of mucous plugging. 2. CT shows incidental finding of 14 mm hypodense mass body the pancreas, not noted on CT of 1 year ago. 3. CEA normal CA125 mildly elevated CA 19?9 pending. MRI abdomen suggests cyst, repeat CT scan in 3 to 6 months recommended. 4. Spoke with daughter Vanesa, who will arrange with primary care physician regarding appointment in a few weeks for follow-up at the cancer center. Time Spent With Patient Time: Total time spent is greater than 50% in coordination of care (as documented) at patient's floor/unit and/or counseling patient:
[2024-10-01] MEDS: PANTOPRAZOLE INJ 40 MG VIAL IVP (08:59)
[2024-10-01] MEDS: LOSARTAN POTASSIUM 25 MG TABLET 50 MG PO (09:00)
[2024-10-01] MEDS: OXYBUTYNIN CHLOR 5 MG TABLET PO (09:00)
[2024-10-01] MEDS: LEVOFLOXACIN 250 MG TABLET 500 MG PO (09:00)
--- NOTE | 2024-10-01 10:21 | PC.SS ---
Follow up note: SS spoke to physician who states they may d/c patient today. Patient may need new home 02. PT to work with patient today and test for any 02 needs. Pending 02 sats documented.
--- NOTE | 2024-10-01 10:49 | PC.PT ---
PT eval only. Patient is xI with bed mobility, transfers, and ambulation with no DME. Patient is at her PLOF. RN notified.
--- NOTE | 2024-10-01 11:01 | PC.SS ---
Follow up note: SS spoke to nursing and PT. Patient was tested for new 02 and does not qualify. Patient's 02 sats were above the required level needed for 02. Patient was in the 90s room air. D/c home today. No needs.
--- NOTE | 2024-10-01 12:53 | PC.NURSE ---
Called to Dr. Moctezuma at [phone] to change pt. pharmacy and to please resend meds.
--- NOTE | 2024-10-01 15:34 | PC.CM ---
Addendum entered by Carolyn Bradford RN 10/01/24 16:44: [facility] accepted the pt. Booked [facility]. Pending start of care date. Addendum entered by Carolyn Bradford RN 10/01/24 15:40: HH referral sent on [facility]. Awaiting responses. Pending start of care date. Original Note: Entered pt on [facility].
--- NOTE | 2024-10-01 18:43 | ESDS_ITS ---
<Statement entered by Art Dove MD - 10/02/24 07:42> Patient was examined with the team including attending physician. Note reviewed, I agree with the discharge plan as documented. - Art Dove M.D. PGY2 <Statement entered by Jose Solis DO - 10/02/24 06:45> Senior attestation: Patient was examined and case was reviewed with team including attending physician. Note reviewed, I agree with most of its contents and agree with the patient's care. Jose Solis DO PGY-3 Planned Discharge Date 10/01/24 DS: Providers Provider Date of admission: 09/27/24 13:14 Primary care physician: Jacqueline Moyer MD Admitting Provider: Pj Moctezuma MD Attending Provider on Admission: Pj Moctezuma MD Consults: 09/27/24 13:24 Consult to Photocomposing Machine Operator Stat Comment: Bronch for mucus plug. Thank you! Consulting Provider: Mil Amador 09/27/24 18:15 Referral Respiratory Therapy Routine Comment: 09/28/24 15:25 Consult to Oncology Routine Comment: pancreatic mass Consulting Provider: Alexsander Eli 10/01/24 08:08 Referral Physical Therapy Urgent Comment: Physician Instructions: Instructions: needed for DC today Attending Provider on DC: zUma Espinoza MD Discharging Provider: Pj Moctezuma MD DS: Diagnosis Problem List Completed Was Problem List Reviewed/Reconciled?: Yes Hospital Course Hospital Course Hospital course: Reason for hospitalization: AHRF 2/2 mucous plug and PNA Stephanie Coronel is 84 yr female with PMH of asthma, COPD with recurrent admission for exacerbation, HLD, HTN who presented to ED on 09/27/24 due to worsening SOB, hypoxia with O2 sats in 70s at home. She was admitted for management of AHRF 2/2 mucous plug and treatment of PNA. She had recently failed outpatient antibiotics and steroid treatment. In ED, CXR and CT were significant for lung atelectasis, possible mucous plug, moderate left pleural effusion, thyroid nodules. CT A/P showed 14 mm hypodense mass in body of pancreas, and colonic diverticulosis without diverticulitis. Precision Farming Specialist was consulted for mucous plug. Oncology Dr. Eli was consulted for pancreatic mass as patient had mild elevations in CA125 marker. She was started on Levaquin 750 mg daily, methylprednisone, and breathing treatments. On 09/28/2024 patient underwent bronchoscopy for removal of mucous plug significant in left upper and lower lobes. Repeat CXR on 09/30 showed rexpansion of left lung. During course of stay, patient had required supplemental oxygen via [place]. She was eventually weaned off oxygen and remained above 90% during ambulatory test with no SOB. Abdominal MRI ordered for evaluation of pancreatic mass was most likely consistent with cyst vs malignancy. Patient is now in stable condition and ready for discharge. Recommendations were given as below. Discharge Recommendations: Follow up with your primary care physician in 1-2 weeks Follow up with oncologist Dr. Alcira Beltre. Repeat abdominal imaging of pancreas in 3-6 months. Continue all home medications as noted above. Discontinued Combivent inhaler, started on Trellegy inhaler for optimization. Continue levofloxacin 500 mg daily for two more days to complete antibiotic course. Take lactobacillus as needed for abdominal discomfort or diarrhea. Take guaifenesin 200 mg BID and needed for cough/congestion. Return to ED if symptoms worsen. Hospital Diagnoses: 1. Acute hypoxemic respiratory failure-resolved 2. Left-sided atelectasis-improved 3. Left sided pleural effusion-improved 4. LT main bronchus mucus plus s/p removal 5. Pneumonia, community VS community-acquired 6. Hx Essential HTN 7. Hx HLD 8. Hx Overactive bladder 9. Hx Chronic shoulder and pain 10. Thyroid nodules 11. Pancreatic mass The patient's management plan was discussed with my attending physician Dr. Moctezuma and seniors Dr. Solis/Dr. Dove. Uzma Espinoza MD, PGY-1 Time Spent with Patient Time attestation: Total time spent providing and/or coordinating discharge services: Time spent: Greater than 30 minutes Home Health Home Health Referral Orders: 10/01/24 09:18 Home Health Referral Routine Reason For Exam: home PT Home-Bound The patient must either because of illness or injury, need the aid of supportive devices such as crutches, canes, wheelchairs, and walkers; the use of special transportation; or the assistance of another person in order to leave their place of residence; OR have a condition such that leaving his or her home is medically contraindicated. In addition, the patient also meets the following criteria: patient is normally unable to leave the home and leaving home requires considerable taxing effort. Addendum to Home Health Certification Practitioner's Certification: I certify that the patient has been under my care in the hospital and the care of attending physician (see below). We had a [id number]-[id number] encounter on (see date below). My clinical findings indicate that the patient is home bound per the above criteria and the Home Health Services noted in these orders are medically necessary. The primary reason for the nqnl-[id number]-judu encounter is related to the fact that the patient requires home health services. Date Certifying Losp-ox-Awkg Physician Encounter: 09/28/24 Physician's Name who will Assume Oversight for Services: Jacqueline Moyer Physician's Phone No.who will Assume Oversight for Service: AUTOMOTIVE PAINTER HELPER - Community Resources: Yes PT to Evaluate: Yes PT to evaluate and provide a treatmnet plan to increase patient's mobility and strength. Wound Care: No IV Therapy: No RN Safety Evaluation: Yes RN to evaluate and create a plan of care that will produce positive outcomes. Palliative Treatment: No Palliative treatment and evaluate the need for hospice. Home Health Aide - Personal Care: Yes Home Health Aide to assist with any ADL's. Exam Vital Signs Temp Pulse Resp BP Pulse Ox O2 Del Method O2 Flow Rate 98.2 F 90 16 128/61 94 L Room Air 1 10/01/24 13:30 10/01/24 13:30 10/01/24 13:30 10/01/24 13:30 10/01/24 13:30 10/01/24 13:30 10/01/24 08:00 Narrative Exam General: Alert and oriented x3. No acute distress, cooperative Eyes: Pupils are equal and reactive to light bilaterally HEENT: Atraumatic, normocephalic. No JVD noted. Mucosa moist. Cardiovascular: Normal S1 and S2. Regular rate and rhythm. No pitting edema Respiratory: Lungs are clear to auscultation bilaterally. No wheezing or crackles heard. Abdomen: Soft, nontender, not distended, normal bowel sounds. Skin: Warm to touch, dry, no rashes noted, senile purpura Musculoskeletal: No gross injuries. Able to move all 4 extremities. Neuro: Alert and oriented x3. No focal neuro deficits. Psych: Normal affect and mood Discharge Plan Plan Patient Disposition: Home w/HOME HEALTH Disposition Comment: Hospitalist to admit Patient condition on transfer: Stable Prescriptions/Referrals Prescriptions/Med Rec: Errol Cruz 100-62.5-25 mcg blister with device 1 inh inhalation Q24H 30 Days Qty: 28 0RF guaifenesin 200 mg tablet 200 mg PO BID PRN (Reason: congestion) 30 Days Qty: 60 0RF Lactobacillus acidophilus 10 billion cell capsule 10,000 mmu cells PO QDAY 30 Days Qty: 30 0RF Continued losartan 50 mg Tablet 50 mg PO QDAY methenamine hippurate 1 gram Tablet 1 g PO BID theophylline 300 mg Tablet Extended Release 12 Hr 300 mg PO DAILY montelukast 10 mg Tablet 10 mg PO QDAY metoclopramide HCl 5 mg tablet 5 mg PO BID budesonide 1 mg/2 mL Suspension For Nebulization 1 mg INHALATION QDAY Myrbetriq 50 mg tablet extended release 24 hr 50 mg PO QDAY cyclobenzaprine 5 mg Tablet 5 mg PO QDAY loperamide 2 mg Capsule 2 mg PO PRN PRN (Reason: Diarrhea) Rx Instructions: administer after each loose stool until symptoms controlled; do not exceed 8 mg per 24 hrs simvastatin 40 mg tablet 40 mg PO QDAY famotidine 20 mg Tablet 20 mg PO QDAY Discontinued Combivent Respimat 20-100 mcg/actuation mist 2 puff INHALATION QID PRN (Reason: wheezing) mirabegron [Myrbetriq] 50 mg tablet extended release 24 hr 50 mg PO QDAY Referrals: Jacqueline Moyer MD [Primary Care Provider] - Patient/Caregiver Discharge Instructions Discharge Activity: as per physical therapy and resume usual activities Other Discharge Activity Instructions:: Follow up with your primary care physician in 1-2 weeks Continue all home medications as noted above. Discontinued Combivent inhaler, started on Trellegy inhaler for optimization. Continue levofloxacin 500 mg daily for two more days to complete antibiotic course. Take lactobacillus as needed for abdominal discomfort or diarrhea. Take guaifenesin 200 mg BID and needed for cough/congestion. Return to ED if symptoms worsen. Education Materials: Thoracentesis Dc, COPD: Coping with Fatigue, If Oxygen Is Prescribed Print Language: Emirati Stand Alone Forms: [employer] Award Info., Patient Portal Info Letter Discharge Order Discharge Orders: Discharge (Routine); Ordered 10/01/24 Ordered By: Art Dove Quality Discharge Quality Measures VTE prophylaxis Attestestation MD Attestation I reviewed labs, imaging, EKG, home medications and prior available records. Face to face evaluation was performed by me. I have personally examined the patient and discussed assessment and plan with the IM team. I reviewed the resident note and agree with the plan with exceptions as below. Please see my separate addendum for the same date of service
[2024-10-02 06:47] LABS: CA 19-9 Antigen* 41 U/mL (<34)
--- NOTE | 2024-10-03 07:48 | PC.CM ---
[facility] accepted patient. They called her and she declined services.
--- NOTE | 2024-10-12 09:47 | PD.ADDPROG ---
Addendum Progress Note Addendum Date of report being addended: 10/12/24 Narrative: Spoke to patient's daughter Vanesa, who will have primary care physician Dr. Ky Moyer for follow-ups regarding the mildly elevated tumor markers and pancreatic lesion. Patient can be referred to the cancer center anytime.
== END 2024-10-01 13:30 | disposition home or self-care (01) | DRG 189 ==
LOC: SERX 13:41 → SERHOLD 13:45 → S2NX 17:51 → S2SX 09-28 12:08 → S2NX 09-28 14:14
PROVIDERS: Emergency Medicine; Student in an Organized Health Care Education/Training Program; Admitting Provider Student in an Organized Health Care Education/Training Program; Emergency Provider Emergency Medicine; PCP Family Medicine; Visit Provider Student in an Organized Health Care Education/Training Program
DX: J96.01 Acute respiratory failure with hypoxia (principal); J18.9 Pneumonia, unspecified organism; T17.890A Other foreign object in other parts of respiratory tract causing asphyxiation, initial encounter; J44.0 Chronic obstructive pulmonary disease with (acute) lower respiratory infection; J45.901 Unspecified asthma with (acute) exacerbation; J90 Pleural effusion, not elsewhere classified; I10 Essential (primary) hypertension; K21.9 Gastro-esophageal reflux disease without esophagitis; E78.5 Hyperlipidemia, unspecified; E04.1 Nontoxic single thyroid nodule; K86.9 Disease of pancreas, unspecified; E04.2 Nontoxic multinodular goiter; I48.91 Unspecified atrial fibrillation; K57.30 Diverticulosis of large intestine without perforation or abscess without bleeding; N32.81 Overactive bladder; R97.1 Elevated cancer antigen 125 [CA 125]; Z79.51 Long term (current) use of inhaled steroids; Z79.899 Other long term (current) drug therapy; Z88.2 Allergy status to sulfonamides; Z88.0 Allergy status to penicillin; W44.F9XA Other object of natural or organic material, entering into or through a natural orifice, initial encounter
CPT/HCPCS: 36415; 71045; 71046; 71260; 74177; 74183; 76999; 80053; 82378; 82803; 83036; 83605; 83615; 83690; 83735; 83880; 84100; 84443; 84484; 85025; 85610; 86301; 86304; 86331; 86635; 87040; 87205; 87811; 93005; 94640; 94664; 94667; 94762; 97161; 97162; 99285; A4649; A9270; A9579; J1956; J2250; J2470; J2919; J3010; J3490; Q9967

== ENCOUNTER → 2025-07-02 | Outpatient (CLI) | payer MEDICARE, BC, SELFPAY ==
[2025-07-02 07:37] LABS: Misc Send Out* See Sep Rpt
[2025-07-02 08:46] LABS: Basophils # (Auto) 0.0 Thou/mm3 (0.0-0.2); Basophils % (Auto) 0 % (0-2.5); Eosinophils # (Auto) 0.1 Thou/mm3 (0.0-0.5); Eosinophils % (Auto) 1 % (0-10); Hematocrit 41.6 % (36.0-46.0); Hemoglobin 14.0 g/dL (12.0-16.0); Immature Granulocytes Auto 0.02 Thou/mm3 (0.00-0.00); Lymphocytes # (Auto) 0.7 Thou/mm3 (1.0-4.8); Lymphocytes % (Auto) 12 % (10-50); Mean Corpuscular HGB Conc 33.7 g/dl (31.0-37.0); Mean Corpuscular Hemoglobin 31.7 pg (25.0-35.0); Mean Corpuscular Volume 94 fL (80-100); Monocytes # (Auto) 0.3 Thou/mm3 (0.0-0.8); Monocytes % (Auto) 5 % (0-12); Neutrophils # (Auto) 4.6 Thou/mm3 (1.8-7.7); Neutrophils % (Auto) 82 % (37-80); Nucleated Red Blood Cell # 0.00 Thou/mm3 (0.00-0.00); Nucleated Red Blood Cell % 0 /100 WBC (0); Platelet Count 221 Thou/mm3 (140-440); RDW Standard Deviation 44.6 fL (36.4-46.3); Red Blood Count 4.41 Miln/mm3 (4.00-5.20); White Blood Count 5.7 Thou/mm3 (3.6-11.0)
[2025-07-02 09:07] LABS: T4 (Thyroxine) 8.6 mcg/dL (4.5-10.9)
[2025-07-02 09:14] LABS: Alanine Aminotransferase 16 U/L (10-49); Albumin, Serum 4.2 gm/dL (3.4-4.8); Albumin/Globulin Ratio 2.0 (1.2-2.2); Alkaline Phosphatase 47 U/L (46-116); Anion Gap 10 (7-16); Aspartate Amino Transferase 21 U/L (0-34); BUN/Creatinine Ratio 33 Ratio (12-20); Bilirubin,Total 0.5 mg/dL (0.3-1.2); Blood Urea Nitrogen 26 mg/dL (9-23); C-Reactive Protein < 0.5 mg/dL (0.0-0.9); Calcium 9.4 mg/dL (8.3-10.6); Calcium (Corrected) 9.4 mg/dL (8.5-10.1); Carbon Dioxide 24.2 mMol/L (20.0-31.0); Chloride 106 mMol/L (98-107); Creatinine (Component) 0.8 mg/dL (0.6-1.3); Globulin 2.1 gm/dL (2.3-3.5); Glucose 121 mg/dL (74-106); Osmolality,Calculated 285 (275-295); Potassium 4.0 mMol/L (3.4-5.1); Sodium 140 mMol/L (136-145); Thyroid Stimulating Hormone 2.39 uIU/mL (0.55-4.78); Total Protein 6.3 gm/dL (5.7-8.2); eGFR > 60 See Note
[2025-07-02 10:16] LABS: Sed Rate (ESR) 8 mm/hr (0-30)
[2025-07-02 13:28] LABS: Cocci Serology, IgM Negative (Negative)
[2025-07-03 14:58] LABS: Cocci Serology, IgG Negative (Negative)
[2025-07-08 07:13] LABS: Immunoglobulin A 388 mg/dL (70-320); tTG Ab, IgA <1.0 U/mL
[2025-07-08 07:17] LABS: Calprotectin, Stool* 34 mcg/g
== END | disposition home or self-care (01) ==
LOC: COPL 07:04
PROVIDERS: PCP Family Medicine; Referring Provider Family Medicine; Visit Provider Specialist
DX: R19.7 Diarrhea, unspecified (principal); K21.9 Gastro-esophageal reflux disease without esophagitis; K86.9 Disease of pancreas, unspecified; E04.2 Nontoxic multinodular goiter; J44.9 Chronic obstructive pulmonary disease, unspecified; N39.490 Overflow incontinence; R79.9 Abnormal finding of blood chemistry, unspecified
CPT/HCPCS: 36415; 80053; 82784; 83993; 84436; 84443; 85025; 85652; 86140; 86331; 86364; 86635

== ENCOUNTER 2025-07-12 08:55 | Day surgery (SDC) | payer MEDICARE, BC, SELFPAY ==
[2025-07-12] VITALS (13 sets, daily range): BP systolic 118–211; BP diastolic 63–102; PULSE 74–97; RESP 14–21; TEMP 36.8–37.1; O2SAT 95–100; BMI 21.0
[2025-07-12] MEDS: SODIUM CHLORIDE 0.9% 500 ML 500 ML 20 ML IV (10:25)
[2025-07-12] MEDS: BENZOCAINE 20% (Hurricaine) SPRAY 1 DOSE TOP (10:25)
[2025-07-12] MEDS: MIDAZOLAM INJ 1 MG/ML VIAL 2 ML (ASD USE ONLY) 2 MG IVP (10:27)
[2025-07-12] MEDS: fentaNYL CIT INJ 50 mCg/ML AMP 2ML (ASD USE ONLY) IVP (10:48)
--- NOTE | 2025-07-12 11:04 | SUR.PHASEII ---
1104 patient arrived to recovery, report received from Mónica ROLLINS
--- NOTE | 2025-07-12 11:42 | SUR.PHASEII ---
1142 patient meets discharge criteria from recovery, awake and alert, breathing unlabored, vital signs stable, denies pain and nausea, assisted with dressing into her clothing by her daughter, discharge instructions given to patient and patients daughter, daughter signed discharge instructions. Patient given all her belongings prior to discharge, transported via wheelchair and left in a private vehicle.
== END 2025-07-12 11:42 | disposition home or self-care (01) ==
PROVIDERS: PCP Family Medicine; Referring Provider Specialist; Visit Provider Specialist
PROC: (CPT 43239; principal; 2025-07-12 10:00)
PROC: 0DBE8ZX Excision of Large Intestine, Via Natural or Artificial Opening Endoscopic, Diagnostic (ICD-10-PCS; CPT 45380; 2025-07-12 10:00)
DX: K52.9 Noninfective gastroenteritis and colitis, unspecified (principal); D12.5 Benign neoplasm of sigmoid colon; K63.89 Other specified diseases of intestine; K62.89 Other specified diseases of anus and rectum; K64.1 Second degree hemorrhoids; K57.30 Diverticulosis of large intestine without perforation or abscess without bleeding; J45.909 Unspecified asthma, uncomplicated; I10 Essential (primary) hypertension; E78.5 Hyperlipidemia, unspecified; Z79.899 Other long term (current) drug therapy; K31.89 Other diseases of stomach and duodenum; K29.50 Unspecified chronic gastritis without bleeding; K22.70 Barrett's esophagus without dysplasia; K22.2 Esophageal obstruction
CPT/HCPCS: 45380; 45385; 43248; 43239; A4649; C1769; J1200; J2250; J3010; J7999; A9270

== ENCOUNTER → 2025-07-18 | Outpatient (CLI) | payer MEDICARE, BC, SELFPAY ==
[2025-07-18 08:53] LABS: Albumin, Serum 4.0 gm/dL (3.4-4.8); Anion Gap 9 (7-16); BUN/Creatinine Ratio 24 Ratio (12-20); Blood Urea Nitrogen 19 mg/dL (9-23); Calcium 9.6 mg/dL (8.3-10.6); Calcium (Corrected) 9.6 mg/dL (8.5-10.1); Carbon Dioxide 27.4 mMol/L (20.0-31.0); Chloride 107 mMol/L (98-107); Creatinine (Component) 0.8 mg/dL (0.6-1.3); Glucose 113 mg/dL (74-106); Osmolality,Calculated 288 (275-295); Phosphorous 3.4 mg/dL (2.4-5.1); Potassium 3.9 mMol/L (3.4-5.1); Sodium 143 mMol/L (136-145); eGFR > 60 See Note
== END | disposition home or self-care (01) ==
LOC: COPL 07:13
PROVIDERS: PCP Family Medicine; Referring Provider Family Medicine; Visit Provider Family Medicine
DX: K86.9 Disease of pancreas, unspecified (principal)
CPT/HCPCS: 36415; 80069

== ENCOUNTER → 2025-08-08 | Outpatient (CLI) | payer MEDICARE, BC, SELFPAY ==
--- NOTE | 2025-08-08 07:00 | XR_ITS ---
Examination: MRI abdomen with intravenous contrast. MRI abdomen without intravenous contrast. Date and time of exam: July 12, 2025, 0654 hours INDICATIONS: CT examination September 27, 2024 14 mm hypodense mass body the pancreas, MRI abdomen September 29, 2000 2414 mm probable cyst body the pancreas Technique: Multiple axial, sagittal and coronal sections of the abdomen obtained. Transverse images, TR 6020, TE 107. T1 weighted transverse images, TR 582, TE 9.5. T2-weighted sagittal images, TR 4000, TE 105. T2-weighted sagittal images, TR 4000, TE 5. Coronal images, TR 4210, TE 107. Axial and coronal images are obtained post 19 cc intravenous injection, gadolinium. Findings: Left lobe 7 mm liver cyst No biliary tract dilatation No gallstones Normal common hepatic common bile duct Septated cyst in the body tail of the pancreas, in aggregate 15 mm Postcontrast images do not demonstrate enhancement of the cysts No enhancing liver or splenic lesions No hydronephrosis Negative for ascites Aorta normal size IMPRESSION: 15 mm benign-appearing cystic mass in the pancreas
== END | disposition home or self-care (01) ==
LOC: SMRI 06:37
PROVIDERS: PCP Family Medicine; Referring Provider Family Medicine; Visit Provider Family Medicine
DX: K86.9 Disease of pancreas, unspecified (principal)
CPT/HCPCS: 74183; A9577

== ENCOUNTER → 2025-09-20 | Outpatient (CLI) | payer MEDICARE, BC, SELFPAY ==
--- NOTE | 2025-09-20 | XR_ITS ---
EXAMINATION: PA lateral chest 2 views TECHNIQUE: Upright PA lateral chest 2 views Date and time: September 20, 2025, 1225 hours, comparison September 30, 2024 INDICATIONS: Coughing beginning 3 weeks ago. FINDINGS: Early pneumonia both bases Mild enlargement cardiac contour Significant hyperexpansion Severe osteopenia IMPRESSION: COPD Significant bibasilar pneumonia
== END | disposition home or self-care (01) ==
PROVIDERS: PCP Family Medicine; Referring Provider Family Medicine; Visit Provider Family Medicine
DX: J18.9 Pneumonia, unspecified organism (principal); J44.9 Chronic obstructive pulmonary disease, unspecified
CPT/HCPCS: 71046

== ENCOUNTER → 2025-10-01 | Outpatient (CLI) | payer MEDICARE, BC, SELFPAY ==
--- NOTE | 2025-10-01 09:31 | XR_ITS ---
EXAMINATION: PA lateral chest 2 views TECHNIQUE: Upright PA lateral chest 2 views Date and time: October 01, 2025, 0944 hours, comparison September 20, 2025 INDICATIONS: Coughing congestion 2 weeks pneumonia FINDINGS: Bibasilar pneumonia Moderate left pleural effusion No significant cardiac enlargement Prominent osteopenia IMPRESSION: Bibasilar pneumonia Moderate left pleural effusion
== END | disposition home or self-care (01) ==
LOC: CDIM 09:00
PROVIDERS: PCP Family Medicine; Referring Provider Family Medicine; Visit Provider Family Medicine
DX: J18.9 Pneumonia, unspecified organism (principal); J90 Pleural effusion, not elsewhere classified
CPT/HCPCS: 71046